=== PATIENT | female | born 1955 | race Caucasian/White ===

== ENCOUNTER 2020-06-12 11:01 | Emergency (ER) | payer OTHER, SELFPAY ==
--- NOTE | ~2020-06-12 | XR_ITS ---
EXAMINATION: XR chest 1V portable DATE: 06/12/2020 12:33 INDICATION: Cough and shortness of breath. TECHNIQUE: A single frontal view of the chest was obtained. COMPARISON: None. FINDINGS: The chest demonstrates clear lungs without pneumonia, pleural effusion, or pneumothorax. Th e heart size is normal. IMPRESSION: 1. No acute cardiopulmonary disease. Reviewed, dictated and finalized at location B. E ROOM WORKER
--- NOTE | ~2020-06-12 | CT_ITS ---
EXAMINATION: CTA chest PE protocol DATE: 06/12/2020 15:47 INDICATION: Shortness of breath. TECHNIQUE: Computed tomography angiography (CTA) of the chest was performed with 100 mL Omnipaque-350 intravenous contrast timed to evaluate the pulmonary arteries. Coronal maximum intensity projection 3D-reconstructions were created by the technologist. Automated exposure control and iterative reconst ruction technique were employed. The dose-length product was 353.59 mGy-cm. COMPARISON: Chest single view 06/12/2020 FINDINGS: There is mild atelectasis in lingula. No pleural effusion. The heart size is normal. No per icardial effusion. There is no pulmonary embolus. There is mild thoracic spondylosis. IMPRESSION: 1. No pulmonary embolus. Reviewed, dictated and finalized at location B. SANDER IMPRESSION: 1. No pulmonary embolus.
[2020-06-12 11:07] VITALS: BP 157/90; PULSE 93; RESP 20; TEMP 36.6; O2SAT 95
--- NOTE | 2020-06-12 11:46 | ECG_ITS ---
Measurements Intervals [place] Rate: 82 P: 62 AR: 143 QRS: -6 QRSD: 70 T: 44 QT: 346 QTc: 406 Interpretive Statements SINUS RHYTHM BASELINE ARTIFACT- II, III, AVF NORMAL ECG Electronically Signed On 06-12-2020 17:19:55 PROGRAM DEVELOPMENT SPECIALIST by Lyndon Collado D.O.
[2020-06-12 12:16] LABS: Basophils Absolute Auto 0.02 K/mm3 (0.00-0.10); Basophils Percent Auto 0.3 % (0.0-1.0); Eosinophils Absolute Auto 0.11 K/mm3 (0.02-0.50); Eosinophils Percent Auto 1.4 % (1.0-6.0); Hematocrit 38.9 % (35.0-49.0); Hemoglobin 12.4 g/dL (12.0-15.0); Immature Granulocyte Absolute 0.03 K/mm3 (0.00-0.00); Immature Granulocyte Percent A 0.4 % (0.0-0.0); Immature Reticulocyte Fraction 9.3 % (2.0-16.52); Lymphocytes Absolute Auto 2.16 K/mm3 (1.10-4.50); Lymphocytes Percent Auto 28.4 % (18.0-42.0); Mean Corpuscular HGB Conc 31.9 g/dL (32.0-36.0); Mean Corpuscular Hemoglobin 25.5 pg (27.0-31.0); Mean Platelet Volume 10.6 fl (9.2-11.8); Monocytes Absolute Auto 0.76 K/mm3 (0.10-0.90); Neutrophils Absolute Auto 4.5 K/mm3 (1.7-7.2); Neutrophils Percent Auto 59.5 % (50.0-70.0); Platelet Count Result 270 K/mm3 (150-420); Red Blood Count 4.86 M/mm3 (4.20-5.40); Red Cell Distribution Width 14.7 % (11.6-14.4); Reticulocyte Hemoglobin Conten 29.8 pg (28.0-35.0); Reticulocyte Percent 1.24 % (0.50-1.50); Reticulocytes Absolute 0.06 M/mm3 (0.02-0.1); White Blood Count 7.6 K/mm3 (4.8-10.8)
[2020-06-12 12:55] LABS: Alanine Aminotransferase 112 U/L (14-59); Albumin Level 3.6 g/dL (3.4-5.0); Alkaline Phosphatase 121 U/L (46-116); Anion Gap 10 mmol/L (8-16); Aspartate Amino Transferase 62 U/L (15-37); Bilirubin,Total 0.3 mg/dL (0.00-1.00); Blood Urea Nitrogen 18 mg/dL (7-18); Calcium 9.7 mg/dL (8.5-10.1); Carbon Dioxide 25 mmol/L (21-32); Chloride 103 mmol/L (98-108); Estimated CRCL calculation 52 ml/min; Estimated Glomerular Filt Rate 59; Ferritin 50 ng/mL (8-252); Glucose 94 mg/dL (70-99); Iron 50 ug/dL (50-170); Osmolality Calculated 287 mOsm/kg (285-295); Percent Iron Saturation 11 % (12-57); Potassium 4.5 mmol/L (3.5-5.1); Sodium 138 mmol/L (136-145); Total Protein 7.2 g/dL (6.4-8.2)
[2020-06-12 12:57] LABS: Troponin I < 0.02 ng/mL (0.00-0.056)
[2020-06-12 14:39] LABS: D Dimer 0.83 mg/L (0.19-0.50)
--- NOTE | 2020-06-12 15:28 | ED.SOB ---
HPI - SOB/Dyspnea General Chief Complaint: Shortness of Breath/Dyspnea Stated Complaint: SOB/Headache Time Seen by Provider: 06/12/20 11:15 Source: patient Mode of arrival: ambulatory Limitations: no limitations History of Present Illness HPI Narrative: Patient comes in because of what she feels is increased work of breathing over the past 2 weeks. She has had mild shortness of breath for that time. MD elicited complaint: shortness of breath Pertinent past history: diabetes Context: other (knee replacement on right) Timing: constant Severity: mild Exacerbating factors: nothing Relieving factors: nothing Known history of: diabetes Treatment prior to arrival: none Related Data Home Medications Medication Instructions Recorded Confirmed levothyroxine 75 mcg PO DAILY 06/12/20 06/12/20 metformin 1,000 mg PO BID 06/12/20 06/12/20 Allergies Allergy/AdvReac Type Severity Reaction Status Date / Time diazepam [From Valium] Allergy Unknown Verified 06/12/20 11:38 morphine Allergy Unknown Verified 06/12/20 11:38 Review of Systems Review of Systems: All systems reviewed & are unremarkable except as noted in HPI and below Respiratory: Respiratory: Reports as per HPI Comments: Mild SOB ongoing for last several weeks as above. Gastrointestinal: Comments: Leaky bowel syndrome. [facility] Past Medical History Medical History Chronic diarrhea Diabetes Hypothyroidism Iron deficiency anemia Vitamin D deficiency Surgical History Surgical History Total knee replacement status Family History Family History Mother Lymphoma Father CAD (coronary artery disease) Social History Social History (Updated 06/12/20 @ 15:53 by Tushar Urban MD) Social History: Smoking status: Never smoker Alcohol intake: never Exam Const: General: no acute distress HENMT: Head: normal to inspection Face and sinus: normal facial exam Eyes: Conjunctivae: conjunctivae normal EOM: EOMs intact bilaterally Neck: Neck: normal visual inspection Chest: Chest palpation & inspection: normal inspection of the chest Resp: Effort & Inspection: normal respiratory effort Auscultation: clear to auscultation bilaterally Cardio: Rate: regular rate Rhythm: regular rhythm GI: Auscultation: normal bowel sounds : External Female Exam: normal external appearance Skin: General skin exam: normal color Neuro: General: patient oriented x3 Speech: normal speech Extrem: General: normal to inspection Psych: Mental Status: mental status grossly normal Thought content: Yes Normal thought content present Course Course Emergency Course: Presented to Er with Complaint of shortness of breath for weeks, not made better or worse by home measures. EKG and labs were reviewed. D Dimer was elevated and C T chest was done. This was negative. Covid is pending. Vital Signs Vital signs: Vital Signs Temperature 36.6 C 06/12/20 11:07 Pulse Rate 93 06/12/20 11:07 Respiratory Rate 20 06/12/20 11:07 Blood Pressure 157/90 H 06/12/20 11:07 Pulse Oximetry 95 06/12/20 11:07 Temperature 36.6 C 06/12/20 11:07 Pulse Rate 93 06/12/20 11:07 Respiratory Rate 20 06/12/20 11:07 Blood Pressure 157/90 H 06/12/20 11:07 Pulse Oximetry 95 06/12/20 11:07 MDM - SOB/Dyspnea Lab Data Result diagrams: 06/12/20 11:46 06/12/20 11:46 Labs: Lab Results 06/12/20 06/12/20 06/12/20 Range/Units 11:46 11:46 11:46 WBC 7.6 (4.8-10.8) K/mm3 RBC 4.86 (4.20-5.40) M/mm3 Hgb 12.4 (12.0-15.0) g/dL Hct 38.9 (35.0-49.0) % MCV 80.0 (78.0-102.0) fL MCH 25.5 L (27.0-31.0) pg MCHC 31.9 L (32.0-36.0) g/dL RDW 14.7 H (11.6-14.4) % Plt Count 270 (150-420) K/mm3 MPV 10.6 (9.2-11.8) fl Immature Gran
[2020-06-12 16:45] VITALS: BP 121/75; PULSE 78; RESP 14; O2SAT 98
[2020-06-13 14:56] LABS: SARS-CoV-2 RNA PCR Negative
[2020-06-18 23:45] LABS: Transferrin 383 mg/dL (188-341)
== END 2020-06-12 16:44 | disposition home or self-care (01) ==
PROVIDERS: Emergency Provider Emergency Medicine; PCP Family Medicine
DX: D50.9 Iron deficiency anemia, unspecified (principal)
CPT/HCPCS: 36415; 71045; 71275; 80053; 82728; 83540; 83550; 84466; 84484; 85025; 85046; 85380; 87635; 93005; 99283; 99284; C9803; Q9965; U0003

== ENCOUNTER 2024-11-25 07:03 | Outpatient (CLI) | payer OTHER, SELFPAY ==
--- OUTSIDE RECORDS SUMMARY | 2024-11-25 07:08 | XMS_ITS | Encounter Summary ---
Author Organization [facility] Address [address] [place] [address] Care Team Providers Care Dance Director Name Role Phone Mike Brooks MD Unavailable [phone] Linda Schulte MD Unavailable Ho Mac MD Unavailable [phone] Tobi Davis MD Primary Care Provider [phone] Jessica Orr MD Unavailable Temo Rodriguez MD Unavailable [phone] Encounter Details Date Type Department Care Team (Late st Contact Info) Description 07/27/2023 Hospital Follow-up Call [facility] [address] [place] [address] Ruchi Omer, RN Social History Tobacco Use Types Packs/Day Years Used Date Smoking Tobacco: Never Smokeless Tobacco: Never Alcohol Use Standard Drinks/Week Comments Yes 0 (1 standard drink = 0.6 oz pur e alcohol) occasional glass of wine [facility] Utilities Answer Date Recorded In the past 12 months has e [employer], gas, oil, or water [employer] threatened to shut off services in your home? No 07/25/2023 Humiliation, Afraid, Rape, and Kick questionnair e Answer Date Recorded Within the last year, have y ou been afraid of your partner or ex-partner? No 07/25/2023 Within the last year, have y ou been humiliated or emotionally abused in other ways by your partner or ex-partner? No Within the last year, have y ou been kicked, hit, slapped, or otherwise physically hurt by your partner or ex-partner? No 07/25/2023 Within the last year, have y ou been raped or forced to have any kind of sexual activity by your partner or ex-partner? No 07/25/2023 Overall Financial Resource Strain (CARDIA) Answe r Date Recorded How hard is it for you to pa y for the very basics like food, housing, medical care, and heating? Not hard at all 07/25/2023 Hunger Vital Sign Answer Date Recorded Within the past 12 months, y ou worried that your food would run out before you got the money to buy more. Never true 07/25/20 23 Within the past 12 months, t he food you bought just didn't last and you didn't have money to get more. Never true 07/25/2023 PRAPARE - Transportation Answer Date Re corded In the past 12 months, has l ack of transportation kept you from medical appointments or from getting medications? No 07/03 In the past 12 months, has l ack of transportation kept you from meetings, work, or from getting things needed for daily living? No 07/25/2023 Housing Stability Vital Sign Answer Mehrdad e Recorded In the last 12 months, was t here a time when you were not able to pay the mortgage or rent on time? No 07/25/2023 In the last 12 months, how many places have you lived? 1 07/25/2023 In the last 12 months, was t here a time when you did not have a steady place to sleep or slept in a nursing home (including now)? 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 Not on file Not on file Not on file documented as of this encounter Functional Status * Are you deaf or do you have serious difficulty hearing Answer Date of Assessment Author Status No 07/25/2023 12:07 AM Alexis Rios RN Active * Are you blind or do you have serious difficulty seeing, even when wearing glasses? Answer Date of Assessment Author Status No 07/25/2023 12:07 AM Alexis Rios RN Active * Do you have serious difficulty walking or climbing stairs? Answer Date of Assessment Author Status Yes 07/25/2023 12:07 AM Alexis Rios RN Active * Do you have difficulty dressing or bathing? Answer Date of Assessment Author Status No 07/25/2023 12:07 AM Alexis Rios RN Active * Because of a physical, mental, or emotional condition, do you have difficulty doing errands alone such as visiting a doctor's office or shopping? Answer Date of Assessment Author Status No 07/25/2023 12:07 AM Alexis Rios RN Active documented as of this encounter Mental Status * Because of a physical, mental, or emotional condition, do you have serious difficulty concentrating, remembering, or making decisions? Answer Entry Date Author Status No 07/25/2023 12:07 AM Alexis Rios RN Active documented in this encounter Plan of Treatment Not on file documented as of this encounter Visit Diagnoses Not on filedocumented in this encounter Care Teams Dance Director Relationship Specialty Start Date End Date Tobi Davis MD [address] [place] [phone] PCP - General FAMILY PRACTICE 10/17/18 Mike Brooks MD CARDIOVASCULAR DISEASE 10/12/16 Linda Schulte MD [address] [place] [phone] EP Chain Saw Operator CLINICAL CARDIAC ELECTROPHYSIOLOGY 03/29/17 Ho Mac MD [address] [place] [phone] [place] [employer] CARDIOVASCULAR DISEASE 11/05/17 Jessica Orr MD [address] [place] [address] [id number] Surgeon NEUROLOGICAL SURGERY 04/07/19 Temo Rodriguez MD [address] [place] [phone] ORTHOPAEDIC SURGERY 05/30/24 documented as of this encounter
--- OUTSIDE RECORDS SUMMARY | 2024-11-25 07:08 | XMS_ITS | Clinical Summary ---
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 Date Activated Date Inactivated Comments 07/25/2023 12:08 AM 07/25/2023 3:16 PM Care Teams Fermenting Cellars Receiver Relationship Specialty Start Date End Date Tobi Pollack MD [address] [place] [phone] PCP - General FAMILY PRACTICE 10/17/18 Mike Brooks MD CARDIOVASCULAR DISEASE 10/12/16 Linda Schulte MD [address] [place] [phone] Stationary Engineer Apprentice CLINICAL CARDIAC ELECTROPHYSIOLOGY 03/29/17 Ho Mac MD [address] [place] [phone] [place] Stationary Engineer Apprentice CARDIOVASCULAR DISEASE 11/05/17 Jessica Orr MD [address] [address] Surgeon NEUROLOGICAL SURGERY 04/07/19 Temo Rodriguez MD [address] [phone] ORTHOPAEDIC SURGERY 05/30/24
--- OUTSIDE RECORDS SUMMARY | 2024-11-25 07:08 | XMS_ITS | Encounter Summary ---
Author Organization [facility] Address [facility] [place] [address] Care Team Providers Care Seo Expert Name Role Phone Mike Brooks MD Unavailable [phone] Linda Schulte MD Unavailable Ho Mac MD Unavailable [phone] Tobi Davis MD Primary Care Provider Jessica Orr MD Unavailable Temo Rodriguez MD Unavailable [phone] Encounter Details Date Type Department Care Team (Late st Contact Info) Description 01/07/2019 Abstract [facility]VERSION [address] [place] [address] , Generic Conversion, Social History Tobacco Use Types Packs/Day Years Used Date Smoking Tobacco: Never Smokeless Tobacco: Never Alcohol Use Standard Drinks/Week Comments Yes 0 (1 standard drink = 0.6 oz pur e alcohol) occasional glass of wine Comments Unknown Sex and Gender Information Value Date Recorded Sex Assigned at Female 08/17/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 Not on file Not on file documented as of this encounter Plan of Treatment Not on file documented as of this encounter Visit Diagnoses Not on filedocumented in this encounter Additional Health Concerns Infection Onset Date Last Indicated Resolved Time COVID-19 Rule Out 12/11/2019 12/11/2019 12/12/2019 6:09 PM CDT COVID-19 Rule Out 04/27/2021 04/27/2021 04/27/2021 7:47 PM CDT documented as of this encounter Care Teams Seo Expert Relationship Specialty Start Date End Date Tobi Davis MD [address] [place] [phone] PCP - General FAMILY PRACTICE 10/17/18 Mike Brooks MD CARDIOVASCULAR DISEASE 10/12/16 Linda Schulte MD [address] [place] [phone] Software Designer CLINICAL CARDIAC ELECTROPHYSIOLOGY 03/29/17 Ho Mac MD [address] [place] [phone] [place] Software Designer CARDIOVASCULAR DISEASE 11/05/17 Jessica Orr MD [address] [phone] Surgeon NEUROLOGICAL SURGERY 04/07/19 Temo Rodriguez MD [address] [phone] ORTHOPAEDIC SURGERY 05/30/24 documented as of this encounter
--- OUTSIDE RECORDS SUMMARY | 2024-11-25 07:08 | XMS_ITS | Encounter Summary ---
Author Organization [facility] Address [address] [place] [address] Care Team Providers Care Pillowcase Cleaner Name Role Phone Alton Marie MD Primary Care Provider [phone] Yosvany Bahena MD Unavailable [phone] Mike Brooks MD Unavailable [phone] Linda Schulte MD Unavailable Mai Bauer [facility] Unavailable [phone] Juan Cadena MD Unavailable Ho Mac MD Unavailable [phone] Tobi Davis MD Primary Care Provider Jessica Orr MD Unavailable Temo Rodriguez MD Unavailable [phone] Encounter Details Date Type Department Care Team (Late st Contact Info) Description 10/21/2015 Abstract [facility] [address] [place] [phone] Mike Brooks MD [address] [facility], [address] [place] [address] Social History Tobacco Use Types Packs/Day Years Used Date Smoking Tobacco: Never Alcohol Use Standard Drinks/Week Comments No 0 (1 standard drink = 0.6 oz pur e alcohol) Comments Unknown Sex and Gender Information Value Date Recorded Sex Assigned at Female 08/17/2024 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 Not on [...] documented as of this encounter Care Teams Pillowcase Cleaner Relationship Specialty Start Date End Date Alton Marie MD [address] [place] [phone] PCP - General FAMILY PRACTICE 07/13/16 10/16/18 Tobi Davis MD [address] [place] [phone] PCP - General FAMILY PRACTICE 10/17/18 Yosvany Bahena MD [address] [place] [phone] CARDIOVASCULAR DISEASE 07/13/16 7 Mike Brooks MD [address] [place] [phone] CARDIOVASCULAR DISEASE 10/12/16 Linda Schulte MD [address] [place] [phone] EP Drainman CLINICAL CARDIAC ELECTROPHYSIOLOGY 03/29/17 Mai Bauer FNP-BC [address] [place] [phone] CARDIOVASCULAR DISEASE 10/21/17 8 Juan Cadena MD [address] [place] [phone] CARDIOVASCULAR DISEASE 10/21/17 8 Ho Mac MD [address] [place] [phone] Ashuelot Drainman CARDIOVASCULAR DISEASE 11/05/17 Jessica Orr MD [address] [phone] Surgeon NEUROLOGICAL SURGERY 04/07/19 Temo Rodriguez MD [address] [phone] ORTHOPAEDIC SURGERY 05/30/24 documented as of this encounter
--- OUTSIDE RECORDS SUMMARY | 2024-11-25 07:08 | XMS_ITS | Clinical Summary ---
Author Organization [facility] Address [address] [place] [address] Care Team Providers Care It Consulting Manager Name Role Phone Branedn Kearney MD Primary Care Provider + Source Comments [facility],non-owned Affiliates and Associated Physician Practices is amultiple site organization consisting of ambulatory clinics and hospital sitesin [place], [place] and [place]. This disclosure is being madepursuant to the Care Everywhere program and may not contain all information available regarding this patient. Last updated 18.[facility] Allergies Active Allergy Reactions Criticality Noted Date Comments Cephalexin Skin Reactions Medium 09/07/2012 Diazepam Other High 09/07/2012 Unable to wake me up Morphine Anaphylaxis,Other High 09/07/2012 Unable to wake me up, Unable to wake me up Active Problems Problem Noted Date Diagnosed Date Syncope and collapse 09/28/2012 Social History Tobacco Use Types Packs/Day Years Used Date Smoking Tobacco: Never Smokeless Tobacco: Never Alcohol Use Standard Drinks/Week Comments Not Asked 0 (1 standard drink = 0.6 oz pur e alcohol) Comments Unknown Sex and Gender Information Value Date Recorded Sex Assigned at Not on file Legal Sex Female 6:48 PM SENIOR NET C DEVELOPER Gender Identity Not on file Sexual Orientation Not on file Plan of Treatment Health Maintenance Due Date Last Done Comments BONE DENSITY TESTING 1955 COLOGUARD (AGES 45-75) - COL ON CA SCREENING 1955 COLON MONITORING 1955 COLONOSCOPY - COLON CA SCREENING 1955 CT COLONOGRAPHY - COLON CA SCREENING 1955 Colorectal Cancer Screening 1955 FIT - COLON CA SCREENING 1955 FLEX SIG - COLON CA SCREENING 1955 LIPID TESTING 1955 MAMMOGRAM 1955 HEPATITIS C SCREENING 06/16/1973 DTAP/TDAP/TD VACCINES (1 - Tdap) 1974 PNEUMOCOCCAL VACCINE 50+ (1 of 1 - PCV) 2005 ZOSTER VACCINE (1 of 2) 2005 COVID-19 VACCINE ( - 2023-2 5 season) 2024 DEPRESSION SCREENING 08/02/2024 INFLUENZA VACCINE (Season Ended) 2025 Respiratory Syncytial Virus (RSV) Vaccine Pt: or over 60 yrs (1 - 1-dose 75+ series) 2030 HEPATITIS B VACCINE Aged Out No longe r eligible based on patient's age to complete this topic HIB VACCINE Aged Out No longer eligi ble based on patient's age to complete this topic HPV VACCINE Aged Out No longer eligi ble based on patient's age to complete this topic MENINGOCOCCAL (Group B) VACC INE SHARED DECISION-MAKING Aged Out No longer eligibl e based on patient's age to complete this topic MENINGOCOCCAL GROUPS A/C/Y/W VACCINE Aged Out No longer eligible b ased on patient's age to complete this topic Care Teams It Consulting Manager Relationship Specialty Start Date End Date Branden Kearney MD [address] [facility] [place] [phone] PCP - General 08/19/12
--- OUTSIDE RECORDS SUMMARY | 2024-11-25 07:08 | XMS_ITS | Data Portability ---
Author Organization [facility], [address] [facility] ([place]) Address [address] 4th [place] [address] Care Team Providers Care Care Management Associate Name Role Phone NELIDA BUNCH Primary Care Provider [phone] NELIDA POLALCK Primary Care Provider Assessment Encounter Date Assessment Date Assessment LastModified by Organization Details LastModified Time 06/01/2024 06/01/2024 CHIEF COMPLAINT: Preoperative visit prior to planned upcoming left total knee replacement on June 13, 2024. INTERVAL HISTORY: The patient presents today for a preoperative visit with me prior to her planned upcoming left total knee replacement. She states there have been no improvement in her symptoms since she last saw me, rating her pain as an 8/10. She is limping anytime she walks. She is using a hinged brace for stability because she has a lot of apprehension on uneven ground or when using stairs. She is having a lot of pain and difficulty sleeping at night. She denies any recent illness or constitutional complaints and is looking forward to proceeding with surgery as scheduled. The patient did see Dr. Fatima with cardiology and has been cleared from a cardiac standpoint. She also saw her primary care physician Dr. Pollack back on May 08 and was cleared from a medical standpoint. Those supporting documents have all been sent to us per her report, and we will certainly make sure that we have received them so that we can review them. It sounds like she has been given clearance to proceed by both physicians. Once again, the patient denies any recent illness and has no other acute complaints or concerns today. REVIEW OF SYSTEMS: CONST: No fevers or chills. No acute distress. EYES: No vision changes. ENT: No difficulty in swallowing. RESP: No shortness of breath. CV: No heart racing. GI: No nausea, vomiting, diarrhea, dark tarry stools, or blood from rectum. : No urinary symptoms. MSK: Please refer to the HPI. SKIN: No rashes or other skin lesions. PSYCH: No new changes in mood or affect. NEURO: No new weakness or changes in sensory function. Reviewed past medical history, surgical history, family history, social history. No changes except as noted. PHYSICAL EXAMINATION: CONST: Alert and oriented. HEAD: Normocephalic, atraumatic. EYES: No icterus. ENT: Oral mucosa pink and moist. RESP: Breathing appears normal. No use of accessory muscles. SKIN: No jaundice. PSYCH: Appropriate mood and affect. NEURO: No speech difficulty. MSK: The patient was observed ambulating today using no assistive device with a hinged brace to left knee and significant antalgia. The brace was removed for examination and focused examination of the left knee is notable for range of motion from full extension to 120 degrees of flexion. Overall alignment is mild to moderate varus with mild effusion. Ligamentous exam is grossly stable to varus or valgus stress throughout the arc of motion as well as anterior and posterior drawer at 90 degrees of flexion. She does have sharp medial joint line tenderness as well as mild lateral joint line tenderness. She has significant discomfort with patellar grind and palpable crepitus through flexion. No pain with passive range of motion of the left hip. She is warm and well-perfused, and neurovascularly intact distally. Reviewed pertinent diagnostic tests, lab work, and imaging. These were reviewed with the patient. IMAGING: Tri-panel view of the left lower extremity was obtained and reviewed independently today, demonstrating severe varus pattern osteoarthritis of the knee with moderate varus alignment. Please refer to the formal radiology report for more detail. PLAN: We reviewed the above clinical and imaging findings today and discussed our plan to proceed with left total knee replacement as scheduled next month. As noted above, the patient has received appropriate medical and cardiac clearance to proceed with surgery. We did review risks and benefits of knee replacement today as well as expected outcome and recovery. The patient was counseled that the risks of surgery include but are not limited to medical or anesthetic risks in addition to surgical risks of bleeding, infection, neurovascular injury, venous thromboembolism, fracture, implant loosening or failure, continued pain, persistent limb stiffness, arthrofibrosis, instability, and potential need for revision surgery. She voiced understanding with all of this. I look forward to seeing her back on the date of surgery. She knows how to reach me if she needs me before then for any reason. [email or web address] Not available 06/01/2024 12:09:49 06/15/2024 06/15/2024 CHIEF COMPLAINT: Follow up left knee replacement performed two days ago on June 13, 2024, at [facility]. I NTERVAL HISTORY: The patient presents today for a shortened interval follow up of her left knee replacement that was performed just a couple of days ago. She was admitted overnight for observation and physical therapy because she failed physical therapy on the date of surgery due to lack of quadriceps function and buckling of the knee. She then had repeat physical therapy assessment two separate times on postop day 1 and demonstrated continued buckling of the knee at those sessions, so she was discharged from the hospital with a knee immobilizer in place and instructed to use a knee immobilizer at all times while ambulating, and that it could be removed for rest. Today, the patient states that she is doing okay overall. She is having expected pain which is being controlled with Sullivan. She denies nausea, vomiting, dizziness, lightheadedness, headache, or chest pain. She is not sure if her quadriceps function has returned yet. She will start outpatient physical therapy tomorrow but has faithfully used her knee immobilizer and her walker any time that she has been up to ambulate since she was discharged from the hospital. She has no other acute complaints or concerns today. REVIEW OF SYSTEMS: CONST: No fevers or chills. No acute distress. EYES: No vision changes. ENT: No difficulty in swallowing. RESP: No shortness of breath. CV: No heart racing. GI: No nausea, vomiting, diarrhea, dark tarry stools, or blood from rectum. : No urinary symptoms. MSK: Please refer to the HPI. SKIN: No rashes or other skin lesions. PSYCH: No new changes in mood or affect. NEURO: No new weakness or changes in sensory function. Reviewed past medical history, surgical history, family history, social history. No changes except as noted. PHYSICAL EXAMINATION: CONST: Alert and oriented. HEAD: Normocephalic, atraumatic. EYES: No icterus. ENT: Oral mucosa pink and moist. RESP: Breathing appears normal. No use of accessory muscles. SKIN: No jaundice. PSYCH: Appropriate mood and affect. NEURO: No speech difficulty. MSK: The patient presented today in a wheelchair. I did not observe her ambulating. She did have a knee immobilizer in place. I reviewed the knee immobilizer for examination. She has an intact Mepilex bandage over her anterior knee incision with no staining or saturation. She has expected edema, ecchymosis and tenderness around the operative site at the left knee. Passively, her knee ranges from full extension to 90 degrees of flexion with some discomfort as expected at terminal flexion. Notably, the patient does have intact but weak quadriceps function today. She is unable to perform an active straight leg raise but she can fire her quadriceps, and she can actively extend her knee without resistance. Her quadriceps strength would be assessed at 3+/5 today. She does have intact sensation throughout the left lower extremity and is otherwise neurovascularly intact. Reviewed pertinent diagnostic tests, lab work, and imaging. These were reviewed with the patient. IMAGING: Plain films of the left knee that were obtained postoperatively on the date of surgery demonstrate a cemented total knee arthroplasty without patellar surfacing with components in good orientation and alignment and no obvious complicating features. Please refer to the formal radiology at [facility] for more detail. PLAN: We reviewed the above clinical and imaging findings today and discussed next steps in management of the patient s left knee. She has weak quadriceps function which is likely somewhat pain inhibited. She will be starting formal physical therapy tomorrow. I advised her to remain in her knee immobilizer at all times while ambulating until she is assessed by her physical therapist on an outpatient basis tomorrow. Once she has return of reliable and good quadriceps function, she can wean out of the knee immobilizer and should continue to use a walker at all times for balance and support to prevent fall and injury. Patient was in agreement. I plan to see her at two weeks for repeat follow up and staple removal, and incision check. She does know how to reach me if she needs me before that next visit. [email or web address] Not available 06/16/2024 12:59:36 08/03/2024 08/03/2024 CHIEF COMPLAINT: Six-week follow-up status post left total knee replacement on June 13, 2024. INTERVAL HISTORY: The patient presents today for follow-up of her left knee replacement that was performed about six weeks ago. She is doing really well. She is ambulating without any assistive device within the home and bringing a cane with her if she goes outside longer distances. She is only taking occasional Sullivan after physical therapy or at night to help her sleep and is otherwise controlling her pain with Tylenol. She is happy with how her incision is healing and denies any local or systemic signs or symptoms of infection, like problems at the incision site as well as fevers, chills, or night sweats. She feels she is making a good recovery thus far and has no acute complaints or concerns today. REVIEW OF SYSTEMS: CONST: No fevers or chills. No acute distress. EYES: No vision changes. ENT: No difficulty in swallowing. RESP: No shortness of breath. CV: No heart racing. GI: No nausea, vomiting, diarrhea, dark tarry stools, or blood from rectum. : No urinary symptoms. MSK: Please refer to the HPI. SKIN: No rashes or other skin lesions. PSYCH: No new changes in mood or affect. NEURO: No new weakness or changes in sensory function. Reviewed past medical history, surgical history, family history, social history. No changes except as noted. PHYSICAL EXAMINATION: CONST: Alert and oriented. HEAD: Normocephalic, atraumatic. EYES: No icterus. ENT: Oral mucosa pink and moist. RESP: Breathing appears normal. No use of accessory muscles. SKIN: No jaundice. PSYCH: Appropriate mood and affect. NEURO: No speech difficulty. MSK: The patient was observed ambulating today using no assistive device with minimal antalgia. Focused examination of the left knee is notable for a nicely healing incision over the anterior aspect of the knee with no local signs of infection. There is really minimal effusion and edema, especially considering the early postoperative phase. The knee ranges from full extension to 120 degrees of flexion comfortably. Ligamentous exam is stable in the coronal and sagittal planes throughout the arc of motion. Thigh and calf are soft. Negative home sign. Patella is tracking in the midline. She is warm and well perfused and neurovascularly intact distally. Reviewed pertinent diagnostic tests, lab work, and imaging. These were reviewed with the patient. IMAGING: Plain films of the left knee were obtained and reviewed independently today demonstrating a cemented total knee arthroplasty in good orientation and alignment with no obvious complicating features. Please refer to the formal radiology report for more detail. PLAN: We reviewed the above clinical and imaging findings today and discussed continued management status post left knee replacement that was performed about six weeks ago. The patient has made a good recovery from surgery thus far. She can continue with activity as tolerated on her knee. I do recommend antibiotic prophylaxis for dental work and invasive procedures going forward. I should see her again in about six weeks for repeat follow-up. She knows how to reach me if she needs me sooner for any reason. [facility] [email or web address] Not available 08/03/2024 13:48:00 10/26/2024 10/26/2024 INTERVAL HISTORY : Ruby Benavidez is a 69-year-old female here today for follow-up evaluation of her left knee. Patient is approximately 3 months status post left total knee arthroplasty performed by Dr. Rodriguez on 06-13-2024. Patient states that she is overall doing well today. She states that she is 40% improved since her last visit. Her current pain level is a 2/10. Symptoms are localized diffusely of the anterior aspect of the left knee. She denies any radiation of symptoms in the left lower extremity. She denies any weakness or numbness in left lower extremity. She presents today without the use of any assist devices. She has returned to work at full duty and doing some moderate exercise and feels that this is quite beneficial for her. She does tolerate increased activity level without any pain or discomfort. She is overall very pleased and satisfied with her outcomes and progression of her left knee at this time. She denies any chest pain, fever, chills, dyspnea, calf pain or calf swelling. REVIEW OF SYSTEMS: CONST: No fevers or chills. No acute distress. EYES: No vision changes. ENT: No difficulty in swallowing. RESP: No shortness of breath. CV: No heart racing. GI: No nausea, vomiting, diarrhea, dark tarry stools, or blood from rectum. : No urinary symptoms. MSK: Please refer to the HPI. SKIN: No rashes or other skin lesions. PSYCH: No new changes in mood or affect. NEURO: No new weakness or changes in sensory function. Reviewed past medical history, surgical history, family history, social history. No changes except as noted. PHYSICAL EXAMINATION: CONST: Alert and oriented. HEAD: Normocephalic, atraumatic. EYES: No icterus. ENT: Oral mucosa pink and moist. RESP: Breathing appears normal. No use of accessory muscles. SKIN: No jaundice. PSYCH: Appropriate mood and affect. NEURO: No speech difficulty. MSK: Patient ambulates with overall normal gait without the use of any assist devices. Inspection of the left knee reveals overall neutral alignment with well-healed anterior surgical incision site with scar formation. There is no obvious erythema, lesions, sores, palpable warmth or signs of infection. The surrounding skin is clean, dry and intact. Gentle range of motion of the knee is from full extension to 110 degrees of flexion. There is satisfactory patellar tracking throughout the range of motion. Intact quadricep tendon and patellar tendon. There is no tenderness palpation of the quadricep, hamstring or calf. The thigh and calf are soft and compressible. The knee is stable to varus and valgus stressing both in flexion and extension. 5/5 strength with flexion and extension of the knee. Stable anterior and posterior drawer. Negative Homans' sign. Palpable dorsalis pedis and posterior tibial pulse. Intact dull sensation of left lower extremity. IMAGING: X-ray imaging of the left knee performed today 10-26-[address] [facility] was independently reviewed with the patient today in the office. X-ray imaging included AP, lateral and sunrise view. X-ray imaging of the left knee demonstrated overall neutral alignment with well-positioned and appropriately sized cemented left total knee arthroplasty without any evidence of hardware failure or loosening. There is satisfactory cement mantle of all components. Lateral view demonstrates no evidence of loose bodies within the joint line. [place] view demonstrates nonresurfaced patella without evidence of subluxation or dislocation. There is no evidence of periprosthetic fractures. Please refer to formal report for more information. PLAN: The plan was discussed in great depth with the patient today in the office. I have congratulated patient on their post-operative progression and overall satisfaction status post left total knee arthroplasty performed by Dr. Rodriguez. I have personally reviewed patient x-ray imaging with them today in the office and informed them they have overall neutral alignment with well-positioned and appropriately sized left total knee arthroplasty without any evidence of loosening or complications. I have recommended patient continue to maintain an active and healthy lifestyle. We discussed low impact exercise activities such as walking, stationary biking, elliptical and swimming. We reviewed the use of prophylactic antibiotics prior to dental prodecures and dental cleanings. Patient was informed that Dr. Rodriguez recommends this protocol for life, and that we will provide these for them in the future when needed. I did inform patient that it takes up to 1 year to fully heal and recover from a total joint replacement, and she certainly has plenty of time to see some continued improvement in her overall functionality and symptom relief. I have recommended that she continue to perform her physical therapy exercises at home least once a day for maximum benefit. Patient has verbally agreed to the plan. All questions and concerns were addressed. Patient will follow-up with myself or Dr. Rodriguez in approximately 3 months for her 6-month status post left total knee arthroplasty evaluation. [email or web address] Not available 10/26/2024 13:20:14 Plan of Treatment Reminders Order Date Submit Date Provider Last Modified By Organization Details Last Modified Time Details Appointments Myriam [place] nt 15.ES T 2024 10:45A M Dr. Temo Rodriguez Not available Not available Not available MAY 10.ES T 2024 10:20A M Ophthalmology Not available Not available Not available Catar act Evalu ation 10.NE W 2024 10:30A M Dr. Tuan Avalos Not available Not available Not available Lab None recor ded. Referral None recor ded. Procedures None recor ded. Surgeries None recor ded. Imaging None recor ded. Medication Orders None recor ded. Patient TargetsNo targets recorded. Patient InstructionsNo instructions recorded. Reason for Referral None Reported. Results Created Date Observation Date Name Description Value Unit Range Abnormal Flag Note LastModifiedBy Organization Detail LastModifiedTime 06/13/20 24 06/13/2024 TYPE AND SCREE N ABO/Rh(D) O POSITI VE Not Available [facility] - Lawanda Martinez [facility] [address] [place], [address], 06/13/2024 13:07:35 06/13/20 24 06/13/2024 TYPE AND SCREE N antibody screen NEGATI VE Not Available [facility] - Lawanda blnaca Juan [facility] [address] [place], [address], 06/13/2024 13:07:35 06/13/20 24 06/13/2024 TYPE AND SCREE N xm expiration 2023,2 359 Not Available [place] [facility] - S rianna Martinez S Lab [address] [place], [address], 06/13/2024 13:07:35 06/13/20 24 06/13/2024 POC GLUCO SE POC glucose 119 70-109 high Not Available [facility] [address] [place], [address], 06/13/2024 15:02:33 06/13/20 24 06/13/2024 TYPE AND SCREE N ABO/Rh(D) Pendin g Not Available [facility] - [facility] rianna Martinez S Lab [address] [place], [address], 06/13/2024 12:21:50 06/13/20 24 06/13/2024 TYPE AND SCREE N antibody screen Pendin g Not Available [facility] - S t Juan S Lab [address] [place], [address], 06/13/2024 12:21:50 06/13/20 24 06/13/2024 TYPE AND SCREE N xm expiration 2023,2 359 Not Available [facility] rianna Martinez S Lab [address] [place], [address], 06/13/2024 12:21:50 06/13/20 24 06/13/2024 POC GLUCO SE POC glucose 111 70-109 high Not Available [facility] Lab [address] [place], [address], 06/13/2024 10:46:48 06/13/20 24 06/13/2024 TYPE AND SCREE N ABO/Rh(D) Pendin g Not Available [facility] - [facility] t Juan S Lab [address] [place], [address], 06/13/2024 10:47:34 06/13/20 24 06/13/2024 TYPE AND SCREE N antibody screen [place]in [place] Not Available [facility] Juan Lab [address] [place], [address], 06/13/2024 10:47:34 06/13/20 24 06/13/2024 TYPE AND SCREE N xm expiration 2023,2 359 Not Available [place] [facility] - [facility] S Lab [address] [place], [address], 06/13/2024 10:47:34 05/03/20 24 05/03/2024 XR, knee, 4 or more view [address] [address] Teleph one [phone] Name: Nahum Benavidez 1822Ex am Date: 2023 Age: 68Phys ician: Temo Rodriguez : 1954Ex aminat ion: XR KNEE 4 VIEWS LEFT Right knee DATE: 024 HISTOR Y: Chroni c left knee pain for 5 years Compar isons: 015 FINDIN GS: 4 images were submit antoinette. There is severe joint space narrow ing in the medial compar tment and mild joint space narrow ing in the patell ofemor al compar tment. There are osteop hytes in all 3 compar tments . There is no acute fractu re. There are no osseou s destru ctive lesion s. IMPRES JACKLYN: Tricom partme ntal osteoa rthrit ic change . There are no acute osseou s findin gs. Electr onical ly signed in Jay cribe by: ANKIT MEDELLIN RES, MD on:05/03/2024 3:23 PM cc: Page PAGE 1 of [facility] ES 1 [email or web address] [facility] [address] [place] [address], [address], 05/08/2024 22:52:21 05/05/20 24 01/16/2014 XR, knee, 4 or more view No observ ation record ed. [email or web address] [facility] Only - [facility] [address] [place], [address], 05/05/2024 17:52:38 05/29/20 24 12/08/2023 imagi ng/di agnos tic resul t No observ ation record ed. [email or web address] Not Available 18:20:55 06/01/20 24 06/01/2024 XR, bone lengt h [facility] 1st [address] [address] Teleph one [phone] Name: Nahum Benavidez 1822Ex am Date: 2023 Age: 68Phys ician: Temo Rodriguez : 1954Ex aminat ion: XR TRIPAN EL LEFT EXAM: XR TRIPAN EL LEFT HISTOR Y: Upcomi ng left knee replac ement. Having pain in left knee for a couple months FINDIN GS: Standi ng fronta l view of the left lower extrem ity submit antoinette. There is modera te to severe medial compar tment osteoa rthrit is. No acute fractu re. IMPRES JACKLYN: Modera te to severe medial compar tment osteoa rthrit is Electr onical ly signed in Jay cribe by: NAHUM Webber on: 9:17 AM cc: Page PAGE [address] [facility] ES 1 [email or web address] [facility] Only - [facility] [address] [place], [address], 06/13/2024 08:31:21 08/03/19 25 08/03/2024 XR, knee, 3 view [facility] [address] [address] [address] Teleph one [phone] Name: Nahum Benavidez 1822Ex am Date: 2024 Age: 69Phys ician: Temo Rodriguez : 1954Ex aminat ion: XR KNEE 3 VIEWS LEFT EXAM: Left Knee, 3 views HISTOR Y: Follow up 6 weeks post-o p left knee replac ement . No curren t compla ints.. COMPAR DEVON: 024 FINDIN GS: The patien t is status post total knee arthro plasty . The hardwa re is intact . The osseou s alignm ent is unchan ged. There is no fractu re or disloc ation. There is no effusi on. IMPRES JACKLYN: Status post total knee arthro plasty withou t compli cation Electr onical ly signed in Jay cribe by: NAFISA Millan MD on:08/03 9:58 AM cc: Page PAGE 1 of [facility] 1 [email or web address] [facility] - [facility] [address], [address], 08/03/2024 14:07:30 10/27/19 25 10/26/2024 XR, knee, 3 view [place] [address] Teleph [facility] Name: Nahum Benavidez 1822Ex am Date: 2024 Age: 69Phys ician: Temo Rodriguez : 1954Ex aminat ion: XR KNEE 3 VIEWS LEFT EXAMIN ATION: XR KNEE 3 VIEWS LEFT HISTOR Y: Left knee follow up from surger y 3 months ago. Compla ins of pain since surger y. COMPAR DEVON: Left knee 08/03/19 25 TECHNI QUE: Left knee 3 views FINDIN GS: The bone minera lizati on is normal . There is a left total knee arthro plasty withou t peripr osthet ic fractu re or eviden ce of loosen ing. There is a trace knee joint effusi on. The patell ann marie is well situat ed within the trochl ear groove on the sunris e view. IMPRES JACKLYN: 1. Left total knee arthro plasty withou t peripr osthet ic fractu re or eviden ce of loosen ing. 2. Trace knee joint effusi on. Electr onical ly signed in Jay tatiana by: SNEHA ROMAN MD on:10/01 12:15 PM cc: Page PAGE 1 of [facility] 1 [email or web address] [facility] Only - [facility] [address] [facility], [place], [address], 10/31/2024 08:24:25 Result Notes None recorded. Problems Name Problem SNOMED Code Status Onset Date Resolution Date Notes Provider Name and Address Organization Details Recorded Time Pain of left knee joint 692879595457 107 Active 2023 Caridad Maldonado [facility] 4 14:36:53 Osteoarth ritis of left knee joint 969174084125 109 Active 2023 Yani Coffman [facility] 4 20:40:21 Acquired varus deformity of left knee 280829652402 100 Active 2023 PAYAL [facility] [address] [place] [address], [phone], [facility] 4 16:19:28 History of operative procedure on knee 840372393 Active 2023 Caridad Maldonado [facility] 4 16:49:57 Obstructi ve sleep apnea of adult 156365272806 3 [facility]23 [facility] 4 10:51:29 Rosacea 177782404 Active 2023 Mary Lou Chante [facility] 4 10:51:36 Multiple benign melanocyt ic nevi 660941994 Active 2023 Right & left upper extremity Mary Lou Chante [facility] 4 10:52:06 Seborrhei c keratosis 210317855 Active 2023 Mary Lou Chante [facility] 4 10:52:15 Solar lentigo 84070652 Active 2023 [facility] 4 10:52:19 Rosacea, papular type 45669186 Active 2023 Dorcas conner, [facility] 4 09:18:14 Lentigo - freckle 627898902 Active 2023 Dorcas conner, [facility] 4 09:18:30 Problem Notes None recorded. Procedures Surgical History Date Name Laterality Status Provider Name and Address Organization Details Recorded Time Colonoscopy with biopsy completed Not Available Health Note 05/25/2024 11:01:02 Total hysterectomy completed Not Available Health Note 05/25/2024 11:01:02 Removal of tonsils completed Not Available Health Note 05/25/2024 11:01:02 Total knee arthroplasty completed Not Available Health Note 05/25/2024 11:01:02 Imaging Results Imaging Date Name Status LastModified by Organiz ation Details LastModified Time 05/03/2024 XR, knee, 4 or more view completed [email or web address] [facility] [address] [place] [address], [id number], 05/08/2024 22:52:21 01/16/2014 XR, knee, 4 or more view completed [email or web address] [facility] [address] [place] [address], [id number], 05/05/2024 17:52:38 12/08/2023 imaging/diag nostic result completed [email or web address] Information not available 05/29/2024 18:20:55 06/01/2024 XR, bone length completed [email or web address] [facility] [address] [place] [address], [id number], 06/13/2024 08:31:21 08/03/2024 XR, knee, 3 view completed [facility] [address] [place] [address], [address], 08/03/2024 14:07:30 10/26/2024 XR, knee, 3 view completed [facility] [address] [place] [address], [id number], 10/31/2024 08:24:25 Procedure Notes None recorded. Medical Equipment None Reported. Allergies Allergen ID Allergen Name Allergen Category Reaction Reaction Severity Criticality Documentation Date Start Date Code Code System Note Provider Name and Address Organization Details Recorded Time 320151 trazodone hydrochlo ride medicatio n Not available Not available Not available 08/30/20232018 11296 RxNorm React ion: Other : makes unres ponsi ve; Not Available Not Available Not Available 209920 diazepam medicatio n dyspnea Not available Not available 08/30/20232010 3322 RxNorm React ion: Short ness of breat h; Not Available Not Available Not Available 236385 morphine sulfate medicatio n seizure Not available Not available 08/30/20232010 21345 RxNorm React ion: Seizu res; Not Available Not Available Not Available 895269 Keflex medicatio n Not available Not available Not available 08/30/20232015 81866 7 RxNorm Not Available Not Available Not Available 287368 Elavil medicatio n Not available Not available Not available 08/30/20232015 56467 RxNorm Not Available Not Available Not Available Medications Name Sig Start Date Stop Date Status Note LastModified by Organization Details LastModified Time amoxicillin 500 mg capsule Take 4 capsules 1 hour prior to dental procedure 2023 active Not Available Not Available Not Avai lable pilocarpine 5 mg tablet TAKE 1 TABLET BY MOUTH THREE TIMES DAILY active Not Available Not Available No t Available azithromyci n 250 mg tablet TAKE 2 TABLETS BY MOUTH ON DAY 1, AND THEN TAKE 1 TABLET BY MOUTH ONCE A DAY ON DAY 2 THROUGH DAY 5 05/03 completed Not Available Not Available Not Available fluconazole 150 mg tablet TAKE 1 TABLET BY MOUTH ONCE FOR ONE DOSE active Not Available Not Available No t Available hydrocodone 5 mg-acetamin ophen 325 mg tablet Take 1 tablet every 4-6 hours by oral route as needed, for Severe Pain. 2023 active Not Available Not Available Not Avai lable minocycline 100 mg capsule TAKE 1 CAPSULE BY MOUTH TWICE DAILY WITH FOOD AND WATER. STOP IF . active Not Available Not Available No t Available meloxicam 15 mg tablet TAKE 1 TABLET BY MOUTH ONCE DAILY NEEDED 05/03 completed Not Available Not Available Not Available sulfacetami de sodium (acne) 10 % lotion (suspension ) Apply 1-3 times daily 2023 active last rx 05.31 .23 Not Available Not Available Not Available acetaminoph en 300 mg-codeine 30 mg tablet 05/03 completed Not Available Not Available Not Available tramadol 50 mg tablet TAKE 1 TABLET BY MOUTH THREE TIMES DAILY NEEDED 05/03 completed Not Available Not Available Not Available levothyroxi ne 100 mcg tablet TAKE 1 TABLET BY MOUTH ONCE DAILY active Not Available Not Available No t Available amoxicillin 875 mg tablet TAKE 1 TABLET BY MOUTH TWICE DAILY 05/03 completed Not Available Not Available Not Available doxycycline monohydrate 50 mg tablet Take 2 tab daily with food and full glass of water 05/03 completed last rx .20 .23 Not Available Not Available Not Available pantoprazol e 40 mg tablet,valerie yed release TAKE 1 TABLET BY MOUTH ONCE DAILY active Not Available Not Available No t Available metronidazo le 0.75 % topical cream APPLY 1 APPLICATI ON TOPICALLY TWICE DAILY active Not Available Not Available No t Available furosemide 20 mg tablet TAKE 1/2 (ONE-HALF ) TABLET BY MOUTH ONCE DAILY active Not Available Not Available No t Available ondansetron 4 mg disintegrat ing tablet DISSOLVE 1 TABLET IN MOUTH EVERY 8 HOURS NEEDED FOR NAUSEA active Not Available Not Available No t Available doxycycline hyclate 100 mg tablet TAKE 1 TABLET BY MOUTH TWICE DAILY WITH FOOD AND FULL GLASS OF WATER. (STOP IF PREGANT) 05/03 completed Not Available Not Available Not Available levothyroxi ne 112 mcg tablet TAKE 1 TABLET BY MOUTH ONCE DAILY active Not Available Not Available No t Available Trulicity 0.75 mg/0.5 mL subcutaneou s pen injector INJECT 0.75MG SUBCUTANE OUSLY ONCE WEEKLY active Not Available Not Available No t Available Rybelsus 7 mg tablet TAKE 1 TABLET BY MOUTH ONCE DAILY active Not Available Not Available No t Available Ozempic 2 mg/dose (8 mg/3 mL) subcutaneou s pen injector INJECT 2 MG SUBCUTANE OUSLY EVERY WEEK active Not Available Not Available No t Available Vitals Date Recorded Body height Heart rate Oxygen saturation Oxygen saturation in Arterial blood by Pulse oximetry Provider Name and Address Organization Details Last Updated DateTime 06/01/2024 157.48 cm 91 /min 97 % 97 % Caridad [facility] 06/01/2024 10:25:43 Date Recorded Body height Heart rate Oxygen saturation Oxygen saturation in Arterial blood by Pulse oximetry Provider Name and Address Organization Details Last Updated DateTime 06/15/2024 157.48 cm 62 /min 98 % 98 % [facility]/15/2024 12:43:46 Date Recorded Body height Heart rate Oxygen saturation Oxygen saturation in Arterial blood by Pulse oximetry Provider Name and Address Organization Details Last Updated DateTime 08/03/2024 157.48 cm 86 /min 98 % 98 % Sirena yan [facility] 08/03/2024 10:58:13 Date Recorded Body height Heart rate Oxygen saturation Oxygen saturation in Arterial blood by Pulse oximetry Provider Name and Address Organization Details Last Updated DateTime 10/26/2024 157.48 cm 75 /min 98 % 98 % Karen Mcgoevrn [facility] 10/26/2024 13:10:34 Social History Question Answer Notes LastModified by Organizat ion Details LastModified Time Tobacco Smoking Status Never Smoker Not Available Health Note 05/25/2024 11:01:03 Do You Have An Advance Directive? No [email or web address] Information not available 05/25/2024 What Is Your Level Of Alcohol Consumption? None [email or web address] Information not available 05/25/2024 What Is Your Level Of Caffeine Consumption? Occasional [email or web address] Information not available 05/25/2024 Are You Currently Employed? No [email or web address] Information not available 05/25/2024 What Is Your Occupation? Retired [email or web address] Information not available 05/25/2024 How Many Times Per Week Do You Exercise? Less Than 1 Time Per Week [email or web address] Information not available 05/25/2024 What Was The Date Of Your Most Recent Tobacco Screening? 06/01/2024 [email or web address] Information not available 05/25/2024 What Is Your Relationship Status? [email or web address] Information not available 05/25/2024 Do You Use Any Illicit Or Recreational Drugs? No [email or web address] Information not available 05/25/2024 Sex: Unknown Functional Status Question Answer Note LastModified by Organizat ion Details LastModified Time What is your exercise level? Occasional [email or web address] Information not available 05/25/2024 Mental Status None recorded. Family History Relationship Description Onset Age of this Age Resolved Age Notes LastModified by Organization Details LastModified Time Unspecified Relation Family history unknown [email or web address] Not available 2023 11:01:01 Medical History Condition Response Diabetes Y Anxiety Disorder N Bleeding Disorder N Attention-deficit Hyperactivity Disorder N High Blood Pressure N Arthritis N Hyperlipidemia N Cancer N Thyroid Problems Y Stroke Y Asthma N COPD N Depression N Anemia Y Seizures N Heart Disease N Fibromyalgia Y Osteoporosis N Kidney Disease N Gynecological HistoryNo gynecological history recorded. Obstetrics History GPAL:G 0 P 0 0 0 0 Past Encounters Encounter ID Performer Location Encounter Start Date Encounter Closed Date Diagnosis/Indication Diagnosis SNOMED-CT Code Diagnosis ICD10 Code Diagnosis Note [id number] Nigel Oneil PA-C [facility] [place] [address] [place] [address],[address] [place] [phone] 05/03/2024 14:54:02 05/03/2024 16:33:45 Osteoarthritis of left knee joint 8468553071 28497 M17.12 Acquired v arus deformity of left knee 4322893452 48613 M21.162 History of right total knee replacement 7793934700 090770 Z96.651 History of transient ischemic attack 277070915 Z86.73 [id number] Temo Rodriguez MD [facility] [place] [address] [place] [address],[address] [place] [phone] 06/01/2024 09:45:18 06/01/2024 11:31:35 Osteoarthritis of left knee joint 5307688237 78596 M17.12 Preprocedu ral examination done 8429823870 17638 Z01.818 [id number] Temo Rodriguez MD [facility] [place] [address] [place] [address],[address] [place] [phone] 06/15/2024 12:03:08 06/15/2024 13:51:05 History of total knee arthroplasty 3271750176 105 Z96.652 [id number] Caridad Maldonado [facility] [place] [address] [place] [address] 06/27/2024 14:29:24 07/03/2024 12:04:39 [id number] Temo Rodriguez MD [facility] [place] [address] [place] [facility] [address] 08/03/2024 10:44:37 08/03/2024 12:28:22 History of total knee arthroplasty 2425310993 105 Z96.652 [id number] Nigel Oneil PA-C [facility] [place] [address] [facility] [place] [address] 10/26/2024 12:45:48 10/26/2024 13:20:35 History of total knee arthroplasty 9198444542 105 Z96.652 Health Concerns Section Related Observation LastModified by Organization Detai ls LastModified Time None Recorded Concern Status LastModified by Organization Details LastModified Time None Recorded Advance Directives Directive N: Payers Encounter Date Sequence Insurance Name Policy Number Policy Hankins Covered Member ID Hankins Member ID Guarantor Name 06/01/2024 1 [employer] (MEDICARE REPLACEMENT PPO) [id number] Ruby L Reema [id number] Ruby Reema 06/15/2024 1 [employer] (MEDICARE REPLACEMENT PPO) [id number] Ruby L Reema [id number] Ruby Reema 06/27/2024 1 [employer] (MEDICARE REPLACEMENT PPO) [id number] Ruby L Reema [id number] Ruyb Reema 08/03/2024 1 [employer] (MEDICARE REPLACEMENT PPO) [id number] Ruby L Reema [id number] Ruby Reema 10/26/2024 1 [employer] (MEDICARE REPLACEMENT PPO) [id number] Ruby L Reema [id number] Ruby Reema Notes Date Note Type Note Provider Name and Address Organization Details Recorded Time text/html Ruby Paredess a 68 year oldfemalepresenting for care. Temo Rodriguez MD [address] [place] [address], [phone], [facility] 06/12/2024 22:37:27 5 text/html Ruby Pak a 69 year oldfemalepresenting for care. Temo Rodriguez MD [address] [place] [address], [phone], [facility] 08/09/2024 15:40:42 5 text/html Patient was seen in the office today forXR, Koos, 3mo POF LTKA 06-13-24 . Patient states their pain level is at5/10 . Nigel Oneil PA-C [address] [place] [address], [phone], [facility] 10/26/2024 13:20:29 OBGyn Episode No OBEpisode recorded.
--- OUTSIDE RECORDS SUMMARY | 2024-11-25 07:09 | XMS_ITS | Encounter Summary ---
Author Organization [facility] Address [address] [place] [address] Care Team Providers Care Network Consultant Name Role Phone Alton Marie MD Primary Care Provider [phone] Mike Brooks MD Unavailable [phone] Linda Schulte MD Unavailable Mai Bauer [facility]- Unavailable [phone] Juan Cadena MD Unavailable Ho Mac MD Unavailable [phone] Tobi Davis MD Primary Care Provider Jessica Orr MD Unavailable Temo Rodriguez MD Unavailable [phone] Encounter Details Date Type Department Care Team (Late st Contact Info) Description 10/16/2017 Abstract [facility] CONVERSION [address] [place] [address] , Generic Conversion, Social History Tobacco Use Types Packs/Day Years Used Date Smoking Tobacco: Never Smokeless Tobacco: Never Alcohol Use Standard Drinks/Week Comments Yes 0 (1 standard drink = 0.6 oz pur e alcohol) occasional glass of wine Comments Unknown Sex and Gender Information Value Date Recorded Sex Assigned at Female 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 Not on file [...] documented as of this encounter Care Teams Network Consultant Relationship Specialty Start Date End Date Alton Marie MD [address] [place] [phone] PCP - General FAMILY PRACTICE 07/13/16 10/16/18 Tobi Davis MD [address] [place] [phone] PCP - [facility] PR[facility] 10/17/18 Mike Brooks MD [address] [place] [phone] CARDIOVASCULAR DISEASE 10/12/16 Linda Schulte MD [address] [place] [address] EP Hat Braider CLINICAL CARDIAC ELECTROPHYSIOLOGY 03/29/17 Mai Bauer FNP-BC [address] [place] [address] CARDIOVASCULAR DISEASE 10/21/17 8 Juan Cadena MD [address] [place] [address] CARDIOVASCULAR DISEASE 10/21/17 8 Ho Mac MD [address] [place] [address] [place] Hat Braider CARDIOVASCULAR DISEASE 11/05/17 Jessica Orr MD [address] [phone] Surgeon NEUROLOGICAL SURGERY 04/07/19 Temo Rodriguez MD [address] [phone] ORTHOPAEDIC SURGERY 05/30/24 documented as of this encounter
--- OUTSIDE RECORDS SUMMARY | 2024-11-25 07:09 | XMS_ITS | Clinical Summary ---
Author Organization [facility] Care Team Providers Care In Home Aide Name Role Phone Unavailable Primary Care Provider Unavailabl e Social History Tobacco Use Types Packs/Day Years Used Date Smoking Tobacco: Never Assessed Comments Unknown Sex and Gender Information Value Date Recorded Sex Assigned at Not on file Legal Sex Female 12:25 AM CDT Gender Identity Not on file Sexual Orientation Not on file Plan of Treatment Health Maintenance Due Date Last Done Comments DEXA Bone Density 1955 Hepatitis C Virus (HCV) Screening 1955 TdaP Immunization 1955 Colonoscopy 2000 Colorectal Cancer Screening 2000 Cologuard 2005 Immunochemical Fecal Occult Blood 2005 Mammogram 2005 Pneumococcal Immunization (5 0+ years) (1 of 1 - PCV) 2005 Zoster Immunization (1 of 2) 2005 Influenza Immunization (#1) 04/02/202404/03, 04/22/2016, 05/22/2013 SARS-COV-2 Immunization (2023- season) 2024 Respiratory Syncytial Virus (RSV) Immunization (Adult) (1 - 1-dose 75+ series) 2030 Hepatitis B Immunization Aged Out No longer eligible based on patient's age to complete this topic Meningococcal Immunization (ACWY) Aged Out No longer eligible b ased on patient's age to complete this topic Rotavirus Immunization Aged Out No lo nger eligible based on patient's age to complete this topic
--- OUTSIDE RECORDS SUMMARY | 2024-11-25 07:09 | XMS_ITS | Encounter Summary ---
Author Organization [facility] Address [address] [place] [address] Care Team Providers Care Tag Stringer Name Role Phone Alton Marie MD Primary Care Provider [phone] Yosvany Bahena MD Unavailable [phone] Mike Brooks MD Unavailable [phone] Linda Schulte MD Unavailable Mai Bauer [facility] Unavailable [phone] Juan Cadena MD Unavailable Ho Mac MD Unavailable [phone] Tobi Davis MD Primary Care Provider [phone] Jessica Orr MD Unavailable Temo Rodriguez MD Unavailable [phone] Encounter Details Date Type Department Care Team (Late st Contact Info) Description 10/12/2016 Abstract [facility] [address] [place] [address] Mike Brooks MD [address] [facility], [address] [place] [address] Social History Tobacco Use Types Packs/Day Years Used Date Smoking Tobacco: Never Alcohol Use Standard Drinks/Week Comments No 0 (1 standard drink = 0.6 oz pur e alcohol) Comments Unknown Sex and Gender Information Value Date Recorded Sex Assigned at Female 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 Not on file [...] documented as of this encounter Care Teams Tag Stringer Relationship Specialty Start Date End Date Alton Marie MD [address] [place] [phone] PCP - General FAMILY PRACTICE 07/13/16 10/16/18 Tobi Davis MD [address] [place] [phone] PCP - General FAMILY PRACTICE 10/17/18 Yosvany Bahena MD [address] [place] [phone] CARDIOVASCULAR DISEASE 07/13/16 7 Mike Brooks MD [address] [place] [phone] CARDIOVASCULAR DISEASE 10/12/16 Linda Schulte MD [address] [place] [phone] EP Shipping Point Inspector CLINICAL CARDIAC ELECTROPHYSIOLOGY 03/29/17 Mai Bauer FNP-BC [address] [place] [address] CARDIOVASCULAR DISEASE 10/21/17 8 Juan Cadena MD [address] [place] [phone] CARDIOVASCULAR DISEASE 10/21/17 8 Ho Mac MD [address] [place] [phone] [place] Shipping Point Inspector CARDIOVASCULAR DISEASE 11/05/17 Jessica Orr MD [address] [phone] Surgeon NEUROLOGICAL SURGERY 04/07/19 Temo Rodriguez MD [address] [phone] ORTHOPAEDIC SURGERY 05/30/24 documented as of this encounter
[2024-11-25 07:27] LABS: Hemoglobin A1C 6.2 % (<5.7)
[2024-11-25 07:36] LABS: Alanine Aminotransferase 24 U/L (14-59); Albumin Level 3.6 g/dL (3.4-5.0); Alkaline Phosphatase 120 U/L (46-116); Anion Gap 9 mmol/L (4-12); Aspartate Amino Transferase 21 U/L (15-37); Bilirubin,Total 0.6 mg/dL (0.00-1.00); Blood Urea Nitrogen 18 mg/dL (7-18); Calcium 9.3 mg/dL (8.5-10.1); Carbon Dioxide 28 mmol/L (21-32); Chloride 104 mmol/L (98-108); Cholesterol 153 mg/dL (0-200); Estimated Glomerular Filt Rate 46; Glucose 102 mg/dL (70-99); HDL Direct 78 mg/dL (40-60); Osmolality Calculated 293 mOsm/kg (285-295); Potassium 4.6 mmol/L (3.5-5.1); Sodium 141 mmol/L (136-145); Thyroid Stimulating Hormone 0.12 uIU/mL (0.36-3.74); Total Protein 7.1 g/dL (6.4-8.2)
[2024-11-25 07:47] LABS: LDL Cholesterol Calculated 68 mg/dL (<130); Triglycerides 34 mg/dL (0-150)
== END 2024-11-25 07:04 | disposition home or self-care (01) ==
LOC: CHSLAB 07:06
PROVIDERS: PCP Family Medicine; Visit Provider Family Medicine
DX: E11.9 Type 2 diabetes mellitus without complications (principal); E03.9 Hypothyroidism, unspecified
CPT/HCPCS: 36415; 80053; 80061; 83036; 84443

== ENCOUNTER 2025-02-10 08:26 | Emergency (ER) | payer OTHER, SELFPAY ==
--- NOTE | ~2025-02-10 | XR_ITS ---
EXAMINATION: XR knee LT 3V DATE: 02/10/2025 08:45 INDICATION: Medial left knee pain post injury TECHNIQUE: Anteroposterior, 2 oblique and crosstable lateral views of the left knee were obtained COMPARISON: None. FINDINGS: Left total knee arthroplasty without patellar resurfacing which appears well seated in near-anatomic alignment. No fracture. No definitive joint effusion. Mild prepatellar soft tissue swelling. IMPRESSION: 1. Left total knee arthroplasty. No acute osseous abnormality. Reviewed, dictated and finalized at location A.
[2025-02-10 08:26] VITALS: BP 116/73; PULSE 92; RESP 18; TEMP 36.9; O2SAT 100
--- OUTSIDE RECORDS SUMMARY | 2025-02-10 08:33 | XMS_ITS | Clinical Summary ---
Author Organization [facility] Address [address] [place] [address] Care Team Providers Care Civil Engineering Draftsperson Name Role Phone Mike Brooks MD Unavailable [phone] Linda Schulte MD Unavailable Ho Mac MD Unavailable [phone] Tobi Pollack MD Primary Care Provider Jessica Orr MD Unavailable Temo Rodriguez MD Unavailable [phone] Allergies Active Allergy Reactions Criticality Noted [...] both hips 07/01 CVA (cerebral vascular accident) ([facility]) 11/09/2017 Diabetes ([facility]) 11/09/2017 GERD (gastroesophageal reflux disease) 8 Sleep apnea 11/09/2017 Overview (11/09/2017): does not use C-pap due to sinus issues TIA (transient ischemic attack) 11/09/2017 Chest discomfort 10/12/2016 PFO (patent foramen ovale) ([facility]) 10/12/2016 Syncope and collapse 07/14/2016 Vasovagal syncope 07/14/2016 Encounters Date Type Department Care Team Description 11/20/2024 9:30 AM CDT - 11/20/2024 11:59 PM CDT Hospital Encounter [facility] [address] [place] [address] Tobi Pollack MD Discharge Disposition: Home or Self Care (Routine Discharge) 11/20/2024 Travel from Last 3 Months Family History [...] pur e alcohol) occasional glass of wine [employer] Utilities Answer Date Recorded In the past 12 months has e electric, gas, oil, or water [employer] threatened to shut off services in your [...] place to sleep or slept in a assisted (including now)? 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 Not on file [...] 4:34 PM CDT Height 157.5 cm (5' 2) 10/20/2024 4:34 PM CDT Body Mass Index [...] this topic Medical Devices Implanted Type Area Kiln Placer Device Identifier Shelf Expiration Date Model / Serial / Lot Cement Bone Biomet 40gm - [id number] Implanted:Qty : 2 on 06/13/2024 by Temo Rodriguez MD at [facility] Cement Implant Left: Knee [employer] [id number] 08/01/2026 [id number] / / [id number] Femur Doris Persona Cr Standard Size 5 Left - [id number] Implanted:Qty : 1 on 06/13/2024 by Temo Rodriguez MD at [facility] Knee Components Left: Knee [employer] [id number] 12/07/2033 [id number] / / [id number] Tibia Stemmed Base Doris Persona Size D Left - [id number] Implanted:Qty : 1 on 06/13/2024 by Temo Rodriguez MD at [facility] Knee Components Left: Knee [employer] [id number] 04/19/2033 [id number] / / [id number] Insert Artc 4-5 Cd 12mm Kn Lt Crcte Rtn Vivacit-E Persona - [id number] Implanted:Qty : 1 on 06/13/2024 by Temo Rodriguez MD at [facility] Knee Components Left: Knee [employer] [id number] 10/29/2027 [id number] / / [id number] Screw Headed Mis Doris 48mm - [id number] Implanted:Qty : 1 on 06/13/2024 by Temo Rodriguez MD at [facility] Screw Left: Knee [employer] [id number] 01/12/2032 [id number] / / [id number] Screw Headed Mis Doris 48mm - [id number] Implanted:Qty : 1 on 06/13/2024 by Temo Rodriguez MD at [facility] Screw Left: Knee [employer] [id number] 02/18/2034 [id number] / / [id number] Explanted Type Area Kiln Placer Device Identifier Shelf Expiration Date Model / Serial / Lot Drill Bit Pin Doris Headless Trocar - [id number] Explanted:Qty: 1 on 06/13/2024 by Temo Rodriguez MD at [facility] Drill Left: Knee [employer] [id number] 05/17/2034 [id number] / / [id number] Procedures Procedure Name Priority Date/Time Associated Diagnosis Comments XR LUMB SPINE 3V Routine 11/20/2024 9:41 AM CDT Lumbar strain, sequela BONE DENSITY/DEXA Routine 09/21/2023 12: 58 PM PET HOUSE SITTER Postmenopausal status LIPID PANEL TIMED 07/25/2023 5:51 AM PET HOUSE SITTER HEMOGLOBIN, GLYCOSYLATED Routine 07/25/2023 12:30 AM PET HOUSE SITTER MG DIAG W DOMI RT DIGI Routine 06/23/2023 12:42 PM PET HOUSE SITTER Abnormal mammogram HEPATITIS PANEL,ACUTE Routine 08/19/2018 1:25 PM PET HOUSE SITTER from Last 3 Months or Most Recently [...] 10:22 AM Narrative 11/20/2024 10:23 AM CDT [address] [place] [address] Examination: Lumbar spine Exam time: 0916 hours. [...] Procedure Note Alden Hathaway MD - 11/20/[address] [place] [address] Examination: Lumbar spine Exam time: 0916 hours. [...] By: Alden Hathaway MD, 11/20/2024 10:22 AM Tobi Pollack MD GENERAL IMAGING Final Resul t * BONE DENSITY/DEXA (09/21/2023 12:58 PM PET HOUSE SITTER) Anatomical Region Laterality Modality Bone Bone Density 09/21/2023 1:36 PM PET HOUSE SITTER Impressions 09/21/2023 1:39 PM PET HOUSE SITTER Impression: BMD measured at both femoral necks at WHO category level of osteopenia. BMD measured at both total hips and AP lumbar spine at level of normal. Ordered By: BERTHA GARCIA Interpreted By: London Sandhu MD, 09/21/2023 1:36 PM Narrative 09/21/2023 1:39 PM PET HOUSE SITTER Examination: DEXA Bone densitometry EXAM DATE: 09/21/2023 [...] at level of normal. Ordered By: BERTHA GARCIA Interpreted By: London Sandhu MD, 09/21/2023 1:36 PM us Bertha Garcia MD DEXA Final Resu lt * LIPID PANEL (07/25/2023 5:51 AM PET HOUSE SITTER) [facility] CHOLESTEROL 164 MG/DL 07/25/2023 7:[address] [facility] Comment:DESIRABLE: <200 TRIGLYCERIDES 51 MG/DL 07/25/2023 7:[address] [facility] Comment:<150 NORMAL HDL 80 >49 MG/DL 07/25/2023 7:34 AM [facility] LDL (CALCULATED) 74 MG/DL 07/25/20 7:34 AM [facility] Comment:<100 OPTIMAL VLDL CALCULATION 10 MG/DL 07/25/20 7:34 AM [facility] Comment:REFERENCE RANGE NOT ESTABLISHED CHOL/HDL RATIO 2.0 07/25/2023 7:[address] [facility] Comment:REFERENCE RANGE NOT ESTABLISHED LDL/HDL 0.9 07/25/2023 7:34 AM [facility] Comment:REFERENCE RANGE NOT ESTABLISHED NON HDL CHOLESTEROL 84 MG/DL 07/25/2023 7:34 AM [facility] Comment:REFERENCE RANGE NOT ESTABLISHED 07/25/2023 5:51 AM PET HOUSE SITTER us Yao Bernabe MD LABORATORY Final Result Performing Organization Address City/[facility] [employer] de Phone Number [facility] [address] [place] [address], [place] [phone] * HEMOGLOBIN, GLYCATED (07/25/2023 12:30 AM PET HOUSE SITTER) HGB A1C 5.6 <5.7 % 07/25/2023 7:[address] [facility] ESTIMATED AVG GLUCOSE 114 74 - 114 MG/DL 07/25/2023 7:46 AM [facility] 07/25/2023 12:3 0 AM PET HOUSE SITTER us Yao Bernabe MD LABORATORY Final Result Performing Organization Address [facility] [employer] de Phone Number [facility] [address] [place] [address], [place] [phone] [id number] * MG DIAG W DOMI RT DIGI (06/23/2023 12:42 PM PET HOUSE SITTER) Anatomical Region Laterality Modality Breast Right Mammography, Rad iographic Imaging 06/23/2023 1:23 PM PET HOUSE SITTER Narrative 06/23/2023 1:30 PM PET HOUSE SITTER Examination: Digital right diagnostic mammogram with CAD. [id number] Clinical history: Follow-up of probably benign nodule. [...] harmonic imaging improves conspicuity compared to previous. [place] appearing tissue architecture is otherwise demonstrated. No [...] By: Alden Hathaway MD, 06/23/2023 1:23 PM Tobi Pollack MD MAMMO Final Resul t * HEPATITIS PANEL,ACUTE (08/19/2018 1:25 PM PET HOUSE SITTER) HEPATITIS B SURFACE AG NON-REACT ABI NON-REACT ABI 08/22/2018 11:[address] [facility] Comment:HBsAg NOT DETECTED. HEP B CORE IGM NON-REACT ABI NON-REACT ABI 08/22/2018 11:[address] [facility] Comment: IgM ANTI HBc NOT DETECTED. DOES NOT EXCLUDE THE POSSIBILITY OF EXPOSURE TO OR INFECTION WITH HBV. NO RETEST REQUIRED.HIGH DOSES OF BIOTIN MAY INTERFERE WITH THIS TEST RESULT. CORRELATION TO CLINICAL HISTORY AND PRESENTATION RECOMMENDED. HAV IGM NON-REACT ABI NON-REACT ABI 08/22/2018 11:[address] [facility] Comment: IgM ANTI HAV NOT DETECTED. DOES NOT EXCLUDE THE POSSIBILITY OF EXPOSURE TO OR INFECTION WITH HAV. LEVELS OF IgM ANTI HAV MAY BE BELOW THE CUTOFF IN EARLY INFECTION. HEPATITIS C AB NON-REACT ABI NON-REACT ABI 08/22/2018 11:[address] [facility] Comment: ANTIBODIES TO HCV NOT DETECTED. DOES NOT EXCLUDE THE POSSIBILITY OF EXPOSURE TO HCV. 08/19/2018 1:25 PM PET HOUSE SITTER 08/19/2018 2:34 PM PET HOUSE SITTER us Generic Conversion Md [facility] Final R esult [facility] [address] [place] [address], [id number] from Last 3 Months or Most Recently Relevant to Health Maintenance Insurance [employer] Advance Directives * Full Code (Latest Code Status on File) Date Activated Date Inactivated Comments 06/13/2024 3:46 PM 06/14/2024 6:04 PM * Full Code Date Activated Date Inactivated Comments 07/25/2023 12:08 AM 07/25/2023 3:16 PM Care Teams Civil Engineering Draftsperson Relationship Specialty Start Date End Date Tobi Pollack MD [address] [place] [phone] PCP - General FAMILY PRACTICE 10/17/18 Mike Brooks MD CARDIOVASCULAR DISEASE 10/12/16 Linda Schulte MD [address] [place] [phone] EP Community Case Manager CLINICAL CARDIAC ELECTROPHYSIOLOGY 03/29/17 Ho Mac MD [address] [place] [phone] [place] Community Case Manager CARDIOVASCULAR DISEASE 11/05/17 Jessica Orr MD [address] [place] [address] Surgeon NEUROLOGICAL SURGERY 04/07/19 Temo Rodriguez MD [address] [phone] ORTHOPAEDIC SURGERY 05/30/24
--- OUTSIDE RECORDS SUMMARY | 2025-02-10 08:33 | XMS_ITS | Clinical Summary ---
Author Organization [facility] Address [address] [place] [address] Care Team Providers Care Leak Inspector Name Role Phone Branden Kearney MD Primary Care Provider + Source Comments [facility],non-owned Affiliates and Associated Physician Practices is amultiple site organization consisting of ambulatory clinics and hospital sitesin [place], [place], [place] and [place]. This disclosure is being madepursuant to the Care Everywhere program and may not contain all information available regarding this patient. Last updated 18.[facility] Allergies Active Allergy Reactions Criticality Noted Date [...] on file Legal Sex Female 6:48 PM AEMT Gender Identity Not on file Sexual Orientation [...] VACCINE (1 of 2) 2005 COVID-19 VACCINE (1 - 2023-2 5 season) 2024 DEPRESSION SCREENING 08/02/2024 INFLUENZA VACCINE (#1) 2025 Respiratory Syncytial Virus (RSV) Vaccine Pt: [...] age to complete this topic Care Teams Leak Inspector Relationship Specialty Start Date End Date Branden Kearney MD [address] [place] [phone] PCP - General 08/19/12
--- OUTSIDE RECORDS SUMMARY | 2025-02-10 08:33 | XMS_ITS | Clinical Summary ---
Author Organization [facility] Care Team Providers Care Environmental Studies Program Director Name Role Phone Unavailable Primary Care Provider [...]
--- OUTSIDE RECORDS SUMMARY | 2025-02-10 08:33 | XMS_ITS | Encounter Summary ---
Author Organization [facility] Address [address] [place] [address] Care Team Providers Care Gastroenterology Professor Name Role Phone Mike Brooks MD Unavailable [phone] Linda Schulte MD Unavailable Ho Mac MD Unavailable [phone] Tobi Davis MD Primary Care Provider [phone] Jessica Orr MD Unavailable Temo Rodriguez MD Unavailable [phone] Encounter Details Date Type Department Care Team (Late st Contact Info) Description 07/27/2023 Hospital Follow-up Call [facility] [address] [place] [address] Ruchi Omer, RN Social History Tobacco Use Types Packs/Day Years Used Date Smoking Tobacco: Never Smokeless Tobacco: Never Alcohol Use Standard Drinks/Week Comments Yes 0 (1 standard drink = 0.6 oz pur e alcohol) occasional glass of wine [facility] Utilities Answer Date Recorded In the past 12 months has e [facility], gas, oil, or water [employer] threatened to shut off services in your [...] place to sleep or slept in a fpc (including now)? 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 Not on file [...] on filedocumented in this encounter Care Teams Gastroenterology Professor Relationship Specialty Start Date End Date Tobi Davis MD [address] [place] [phone] PCP - General FAMILY PRACTICE 10/17/18 Mike Brooks MD CARDIOVASCULAR DISEASE 10/12/16 Linda Schulte MD [address] [place] [phone] EP Supervisor Painting Department CLINICAL CARDIAC ELECTROPHYSIOLOGY 03/29/17 Ho Mac MD [address] [place] [phone] Julian Supervisor Painting Department CARDIOVASCULAR DISEASE 11/05/17 Jessica Orr MD [address] [place] [address] Surgeon NEUROLOGICAL SURGERY 04/07/19 Temo Rodriguez MD [address] [place] [phone] ORTHOPAEDIC SURGERY 05/30/24 documented as of this encounter
--- OUTSIDE RECORDS SUMMARY | 2025-02-10 08:33 | XMS_ITS | Encounter Summary ---
Author Organization [facility] Address [address] [place] [address] Care Team Providers Care Quarter Inspector Name Role Phone Alton Marie MD Primary Care Provider [phone] Yosvany Bahena MD Unavailable [phone] Mike Brooks MD Unavailable [phone] Linda Schulte MD Unavailable Mai Bauer [facility] Unavailable [phone] Juan Cadena MD Unavailable Ho Mac MD Unavailable [phone] Tobi Davis MD Primary Care Provider Jessica Orr MD Unavailable Temo oRdriguez MD Unavailable [phone] Encounter Details Date Type Department Care Team (Late st Contact Info) Description 10/12/2016 Abstract [facility] [address] [place] [address] Mike Brooks MD [address], [address] [place] [address] Social History Tobacco Use Types Packs/Day Years Used Date Smoking Tobacco: Never Alcohol Use Standard Drinks/Week Comments No 0 (1 standard drink = 0.6 oz pur e alcohol) Comments Unknown Sex and Gender Information Value Date Recorded Sex Assigned at Female 08/17/2024 2:23 PM AUTOMOTIVE SERVICE MANAGEMENT TEACHER Legal Sex Female 6:09 PM CDT Gender Identity Not on file Sexual Orientation Not on file 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 Not on file [...] documented as of this encounter Care Teams Quarter Inspector Relationship Specialty Start Date End Date Alton Marie MD [address] [place] [phone] PCP - General FAMILY PRACTICE 07/13/16 10/16/18 Tobi Davis MD [address] [place] [phone] PCP - General FAMILY PRACTICE 10/17/18 Yosvany Bahena MD [address] [place] [phone] CARDIOVASCULAR DISEASE 07/13/16 Mike Brooks MD [address] [place] [address] CARDIOVASCULAR DISEASE 10/12/16 Linda Schulte MD [address] [place] [phone] EP Bi Technical Lead CLINICAL CARDIAC ELECTROPHYSIOLOGY 03/29/17 Mai Bauer FNP-BC [address] [place] [phone] CARDIOVASCULAR DISEASE 10/21/17 8 Juan Cadena MD [address] [place] [address] CARDIOVASCULAR DISEASE 10/21/17 8 Ho Mac MD [address] [place] [phone] [place] Bi Technical Lead CARDIOVASCULAR DISEASE 11/05/17 Jessica Orr MD [address] [place] [phone] Surgeon NEUROLOGICAL SURGERY 04/07/19 Temo Rodriguez MD [address] [phone] ORTHOPAEDIC SURGERY 05/30/24 documented as of this encounter
--- OUTSIDE RECORDS SUMMARY | 2025-02-10 08:33 | XMS_ITS | Data Portability ---
Author Organization [facility], [address] [facility] ([place]) Address [address] 4th [place] [address] Care Team Providers Care Real Estate Investor Name Role Phone NELIDA BUNCH Primary Care Provider [phone] NELIDA POLLACK Primary Care Provider Assessment Encounter Date Assessment [...] me before then for any reason. [email or web address] Not available 06/01/2024 12:09:49 06/15/2024 06/15/2024 CHIEF COMPLAINT: Follow up left knee replacement performed two days ago on June 13, 2024, at [facility]. I NTERVAL HISTORY: The patient presents today [...] expected pain which is being controlled with [place]. She denies nausea, vomiting, dizziness, lightheadedness, headache, [...] Please refer to the formal radiology at [facility] for more detail. PLAN: We reviewed the [...] needs me before that next visit. [email or web address] Not available 06/16/2024 12:59:36 08/03/2024 08/03/2024 CHIEF [...] longer distances. She is only taking occasional [place] after physical therapy or at night to [...] she needs me sooner for any reason. [facility] [email or web address] Not available 08/03/2024 13:48:00 10/26/2024 10/26/2024 [...] the left knee performed today 10-26-2024 at [facility] was independently reviewed with the patient [...] of loose bodies within the joint line. [place] view demonstrates nonresurfaced patella without evidence of [...] Organization Details Last Modified Time Details Appointments Estab jim [place] nt 15.ES T 2024 02:30P M Dr. Temo Rodriguez Not available Not available Not available OCT 10.ES T 2024 10:20A M Ophthalmology Not [...] Abnormal Flag Note LastModifiedBy Organization Detail LastModifiedTime 06/13/2006/13/2024 TYPE AND SCREE N ABO/Rh(D) O POSITI VE Not Available Oh Only - [facility] [address] [place], [address], 06/13/2024 13:07:35 06/13/2006/13/2024 TYPE AND SCREE N antibody screen NEGATI VE Not Available Oh Only - [facility] [address] [place], [address], 06/13/2024 13:07:35 06/13/20 24 06/13/2024 TYPE AND SCREE N xm expiration 2023,2 359 Not Available Oh Only - [facility] [address] [place], [address], 06/13/2024 13:07:35 06/13/20 24 06/13/2024 POC GLUCO SE POC glucose 119 70-109 high Not Available [facility] [address] [place], [address], 06/13/2024 15:02:33 06/13/20 24 06/13/2024 TYPE AND SCREE N ABO/Rh(D) Pendin g Not Available Oh Only - [facility] [address] [place], [address], 06/13/2024 12:21:50 06/13/20 24 06/13/2024 TYPE AND SCREE N antibody screen Pendin g Not Available Oh Only - [facility] [address] [place], [address], 06/13/2024 12:21:50 06/13/20 24 06/13/2024 TYPE AND SCREE N xm expiration 2023,2 359 Not Available Oh Only - [facility] [address] [place], [address], 06/13/2024 12:21:50 06/13/20 24 06/13/2024 POC GLUCO SE POC glucose 111 70-109 high Not Available [facility] [address] [place], [address], 06/13/2024 10:46:48 06/13/20 24 06/13/2024 TYPE AND SCREE N ABO/Rh(D) Pendin g Not Available Oh Only - [facility] [address] [place], [address], 06/13/2024 10:47:34 06/13/20 24 06/13/2024 TYPE AND SCREE N antibody screen Pendin g Not Available Oh Only - [facility] [address] [place], [address], 06/13/2024 10:47:34 06/13/20 24 06/13/2024 TYPE AND SCREE N xm expiration 2023,2 359 Not Available Oh Only - [facility] [address] [place], [address], 06/13/2024 10:47:34 05/03/20 24 05/03/2024 XR, knee, 4 or more view [address] [address] Teleph one Name: Nahum Benavidez 1822Ex am Date: 2023 [...] Page PAGE 1 of NUMPAG ES 1 [email or web address] Oh Only - [facility] Radiology [address] [place] [address], [address], 05/08/2024 22:52:21 05/05/20 24 01/16/2014 XR, knee, 4 or more view No observ ation record ed. [email or web address] Sc Only - Sc Radiology [address] [place] [address], [address], 05/05/2024 17:52:38 05/29/20 24 12/08/2023 imagi ng/di agnos tic resul t No observ ation record ed. [email or web address] Not Available 18:20:55 06/01/20 24 06/01/2024 XR, bone lengt h [facility] [address] [place] [address] Teleph one Name: Nahum Benavidez 1822Ex am Date: 2023 [...] 9:17 AM cc: Page PAGE 1 of [facility] 1 [email or web address] Sc Only - Sc Radiology [address] [place] [address], [address], 06/13/2024 08:31:21 08/03/1908/03/2024 XR, knee, 3 view [facility] [address] [address] Teleph one [phone] Name: Nahum Benavidez 1822Ex am Date: 2024 [...] 9:58 AM cc: Page PAGE 1 of [facility] 1 [email or web address] Oh Only - Oh Radiology [facility], [address], 08/03/2024 14:07:30 10/27/19 25 10/26/2024 XR, knee, [address] [address] Teleph one Name: Nahum Benavidez 1822Ex am Date: 2024 [...] trace knee joint effusi on. The patell a is well situat ed within the trochl ear groove on the sunris e view. IMPRES JACKLYN: 1. Left total knee arthro plasty withou t peripr osthet ic fractu re or eviden ce of loosen ing. 2. Trace knee joint effusi on. Electr onical ly signed in Jay cribe by: SNEHA ROMAN MD on:10/01 12:15 PM cc: Page PAGE 1 of GINNA JAIMES 1 Oh Only - Oh Radiology [address] [place] [address], [address], 10/31/2024 08:24:25 02/04/20 25 08/23/2018 imagi ng/di agnos tic resul t No observ ation record ed. [email or web address] Not Available 0 02/03/2025 07:41:32 02/04/20 25 08/23/2018 imagi ng/di agnos tic resul t No observ ation record ed. [email or web address] Not Available 0 02/03/2025 07:41:32 02/04/20 25 10/12/2017 imagi ng/di agnos tic resul t No observ ation record ed. [email or web address] Not Available 0 02/03/2025 07:41:34 02/04/20 25 01/19/2019 imagi ng/di agnos tic resul t No observ ation record ed. [email or web address] Not Available 0 02/03/2025 07:41:37 02/04/20 25 01/31/2019 imagi ng/di agnos tic resul t No observ ation record ed. [email or web address] Not Available 0 02/03/2025 07:41:41 02/04/20 25 03/15/2019 imagi ng/di agnos tic resul t No observ ation record ed. [email or web address] Not Available 0 02/03/2025 07:41:44 02/04/20 25 07/04/2020 imagi ng/di agnos tic resul t No observ ation record ed. [email or web address] Not Available 0 02/03/2025 07:41:56 Result Notes Documentation Provider Name and Address Organization Details Recorded Time Xr, Bone Length : [address] [address] Name: Ruby Benavidez Date: 06/01/2024 Age: 68Physician: Temo Rodriguez : 1955Examination: XR TRIPANEL LEFT EXAM: XR TRIPANEL LEFT HISTORY: Upcoming left knee replacement. Having pain in left knee for a couple months FINDINGS: Standing frontal view of the left lower extremity submitted. There is moderate to severe medial compartment osteoarthritis. No acute fracture. IMPRESSION: Moderate to severe medial compartment osteoarthritis Electronically signed in [employer]elbe by: PRAMOD BORIS on:06/01/2024 9:17 AM cc: Page PAGE 1 of TripLingo 1 Temo Rodriguez MD [address] [place] [address], [phone], [facility] 06/13/2024 08:31:21 Xr, Knee, 3 View : [facility] 1st [address] [address] Name: Ruby Benavidez Date: 08/03/2024 Age: 69Physician: Temo Rodriguez : 1955Examination: XR KNEE 3 VIEWS LEFT EXAM: Left Knee, 3 views HISTORY: Follow up 6 weeks post-op left knee replacement 06/21/24. No current complaints.. COMPARISON: 05/03/2024 FINDINGS: The patient is status post total knee arthroplasty. The hardware is intact. The osseous alignment is unchanged. There is no fracture or dislocation. There is no effusion. IMPRESSION: Status post total knee arthroplasty without complication Electronically signed in [employer] Pet[employer] by: NAFISA ALICEA MD on:08/03/2024 9:58 AM cc: Page PAGE 1 of TripLingo 1 Teom Rodriguez MD [address] [place] [address], [phone], [facility] 08/03/2024 14:07:30 Xr, Knee, 3 View : [facility] 1st [address] [address] Name: Ruby Benavidez Date: 10/26/2024 Age: 69Physician: Temo Rodriguez : 1955Examination: XR KNEE 3 VIEWS LEFT EXAMINATION: XR KNEE 3 VIEWS LEFT HISTORY: Left knee follow up from surgery 3 months ago. Complains of pain since surgery. COMPARISON: Left knee 08/03/2024 TECHNIQUE: Left knee 3 views FINDINGS: The bone mineralization is normal. There is a left total knee arthroplasty without periprosthetic fracture or evidence of loosening. There is a trace knee joint effusion. The patella is well situated within the trochlear groove on the sunrise view. IMPRESSION: 1. Left total knee arthroplasty without periprosthetic fracture or evidence of loosening. 2. Trace knee joint effusion. Electronically signed in PowerScribe by: SNEHA ROMAN MD on:10/26/2024 12:15 PM cc: Page PAGE 1 of NUMPAGES 1 Temo Rodriguez MD [address] [place] [address], [phone], [facility] 10/31/2024 08:24:25 Problems Name Problem SNOMED Code Status Onset Date Resolution Date Notes Provider Name and Address Organization Details Recorded Time Pain of left knee joint 548190501387 107 Active 2023 Caridad Maldonado [facility] 4 14:36:53 Osteoarth ritis of left knee joint 388665952360 109 Active 2023 Yani Coffman [facility] 4 20:40:21 Acquired varus deformity of left knee 210179598789 100 Active 2023 Nigel Oneil PA-C [address] [place] [address], [address], [facility] 4 16:19:28 History of operative procedure on knee 426148690 Active 2023 Caridad Maldonado [facility] 4 16:49:57 Obstructi ve sleep apnea of adult 172074885238 3 Active 2023 Mary Lou Chante [facility] 4 10:51:29 Rosacea 302393185 [facility] 10:51:36 Multiple benign melanocyt ic nevi 351150858 Active 2023 Right & left upper extremity [facility] 4 10:52:06 Seborrhei c keratosis 858812775 Active 2023 [facility] 4 10:52:15 Solar lentigo 30598180 Active 2023 [facility] 4 10:52:19 Rosacea, papular type 69704680 Active 2023 Dorcas Gillette [facility] 4 09:18:14 Lentigo - freckle 724764563 Active 2023 Dorcas Gillette [facility] 4 09:18:30 Problem Notes None recorded. Procedures Surgical History Date Name Laterality Status Provider Name and Address Organization Details Recorded Time Colonoscopy with biopsy completed Not Available Health Note 05/25/2024 11:01:02 Total hysterectomy completed Not Available Health Note 05/25/2024 11:01:02 Removal of tonsils completed Not Available Health Note 05/25/2024 11:01:02 Total knee arthroplasty completed Not Available Health Note 05/25/2024 11:01:02 Imaging Results None recorded. Procedure Notes None recorded. Medical Equipment None Reported. Allergies Allergen ID Allergen Name Allergen Category Reaction Reaction Severity Criticality Documentation Date Start Date Code Code System Note Provider Name and Address Organization Details Recorded Time 201532 trazodone hydrochlo ride medicatio n Not available Not available Not available 08/30/20232018 14475 RxNorm React ion: Other : makes unres ponsi ve; Not Available [facility] 22:15:43 478003 diazepam medicatio n dyspnea Not available Not available 08/30/20232010 3322 RxNorm React ion: Short ness of breat h; Not Available [facility] 22:15:50 863239 morphine sulfate medicatio n seizure Not available Not available 08/30/20232010 81958 RxNorm React ion: Seizu res; Not Available [facility] 4 22:15:50 165402 Keflex medicatio n Not available Not available Not available 08/30/20232015 22224 7 RxNorm Not Available [facility] 4 22:16:06 037720 Elavil medicatio n Not available Not available Not available 08/30/20232015 08249 RxNorm Not Available [facility] 4 22:16:06 Medications Name Sig Start Date Stop Date [...] 1-3 times daily 2023 active last rx 12.30 . Not Available Not Available Not Available acetaminoph [...] glass of water 05/03 completed last rx 10.20 .23 Not Available Not Available Not Available [...] /min 98 % 98 % Sirena yan [facility] 08/03/2024 10:58:13 Date Recorded Body height Heart rate Oxygen saturation Oxygen saturation in Arterial blood by Pulse oximetry Provider Name and Address Organization Details Last Updated DateTime 10/26/2024 157.48 cm 75 /min 98 % 98 % Karen Mcgovern [facility] 10/26/2024 13:10:34 Date Recorded Body height Heart rate Oxygen saturation Oxygen saturation in Arterial blood by Pulse oximetry Provider Name and Address Organization Details Last Updated DateTime 06/01/2024 157.48 cm 91 /min 97 % 97 % Caridad [facility] 06/01/2024 10:25:43 Date Recorded Body height Heart rate Oxygen saturation Oxygen saturation in Arterial blood by Pulse oximetry Provider Name and Address Organization Details Last Updated DateTime 06/15/2024 157.48 cm 62 /min 98 % 98 % Caridad [facility] 06/15/2024 12:43:46 Social History Question Answer Notes LastModified by Criptext Details LastModified Time Tobacco Smoking Status Never Smoker Not Available Health Note 05/25/2024 11:01:03 Do You Have An Advance Directive? No [email or web address] Information not available 05/25/2024 What Is Your Level Of Caffeine Consumption? Occasional [email or web address] Information not available 05/25/2024 How Many Times Per Week Do You Exercise? Less Than 1 Time Per Week [email or web address] Information not available 05/25/2024 What Was The Date Of Your Most Recent Tobacco Screening? 06/01/2024 [email or web address] Information not available 05/25/2024 What Is Your Relationship Status? [email or web address] Information not available 05/25/2024 Sex: Unknown Functional Status Question Answer Note LastModified by Criptext Details LastModified Time Do you use any illicit or recreational drugs? No [email or web address] Information not available 05/25/2024 What is your level of alcohol consumption? None [email or web address] Information not available 05/25/2024 Are you currently employed? No [email or web address] Information not available 05/25/2024 What is your occupation? Retired [email or web address] Information not available 05/25/2024 What is your exercise level? Occasional [email or web address] [...] SNOMED-CT Code Diagnosis ICD10 Code Diagnosis Note [id number] Nigel Oneil PA-C [address] ([place]) [address] [place] [address],[address] [place] [address] 05/03/2024 14:54:02 05/03/2024 16:33:45 Osteoarthritis of left knee joint 2579647830 93775 M17.12 Acquired v arus deformity of left knee 6846144717 92469 M21.162 History of right total knee replacement 8867655171 191665 Z96.651 History of transient ischemic attack 551781857 Z86.73 [id number] Temo Rodriguez MD [address] [facility] [place] [address] [place] [address], [place] [address] 06/01/2024 09:45:18 06/01/2024 11:31:35 Osteoarthritis of left knee joint 3459278220 21251 M17.12 Preprocedu ral examination done 1311598093 89075 Z01.818 [id number] Temo Rodriguez MD [address] [facility] [place]) [address] [place] [address], [place] [address] 06/15/2024 12:03:08 06/15/2024 13:51:05 History of total knee arthroplasty 6579742656 105 Z96.652 [id number] Temo Rodriguez MD [address] [place] [address] [place] [address] 06/27/2024 14:29:24 07/03/2024 12:04:39 [id number] Temo Rodriguez MD [address] [facility] [place] [address] [place] [address],[address] [place] [address] 08/03/2024 10:44:37 08/03/2024 12:28:22 History of total knee arthroplasty 2795781913 105 Z96.652 [id number] Nigel Oneil PA-C [address] [place] [address] [place] [address] 10/26/2024 12:45:48 10/26/2024 13:20:35 History of total knee arthroplasty 0720938095 105 Z96.652 Health Concerns Section Related Observation LastModified by Organization Detai ls LastModified Time None Recorded Concern Status LastModified by Organization Details LastModified Time None Recorded Advance Directives Directive N: Payers Insurance Date Sequence Insurance Name Policy Number Policy Hankins Covered Member ID Hankins Member ID Guarantor Name 11/21/2024 1 [place] Ruby Parsonser [id number] Ruby Reema 01/06/2025 1 [employer] (MEDICARE REPLACEMENT/ ADVANTAGE - PPO) [id number] Ruby Parsonser [id number] Ruby Benavidez Notes Date Note Type Note Provider Name and Address Organization Details Recorded Time 4 text/html Ruby Pak a 68 year oldfemalepresenting for care. Temo Rodriguez MD [address] [place] [address], [phone], [facility] 06/12/2024 22:37:27 5 text/html Ruby Pak a 69 year oldfemalepresenting for care. Temo Rodriguez MD [address] [place] [address], [phone], [facility] 08/09/2024 15:40:42 5 text/html Patient was seen in the office today forXR, Koos, 3mo POF LTKA 24 . Patient states their pain level is at5/10 . Nigel Oneil PA-C [address] [place] [address], [phone], [facility] 10/26/2024 13:20:29 OBGyn Episode No OBEpisode recorded.
--- OUTSIDE RECORDS SUMMARY | 2025-02-10 08:33 | XMS_ITS | Encounter Summary ---
Author Organization [facility] Address [facility] [place] [address] Care Team Providers Care Veneer Sheet Repairer Name Role Phone Mike Brooks MD Unavailable [phone] Linda Schulte MD Unavailable Ho Mac MD Unavailable [phone] Tobi Davis MD Primary Care Provider [phone] Jessica Orr MD Unavailable Temo Rodriguez MD Unavailable [phone] Encounter Details Date Type Department Care Team (Late st Contact Info) Description 01/07/2019 Abstract [facility] CONVERSION [address] [place] [address] , Generic Conversion, Social History Tobacco Use Types Packs/Day Years Used Date Smoking Tobacco: Never Smokeless Tobacco: Never Alcohol Use Standard Drinks/Week Comments Yes 0 (1 standard drink = 0.6 oz pur e alcohol) occasional glass of wine Comments Unknown Sex and Gender Information Value Date Recorded Sex Assigned at Female 08/17/2024 2:23 PM TERMITE HELPER Legal Sex Female 6:09 PM CDT Gender Identity Not on file Sexual Orientation Not on file 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 Not on file [...] documented as of this encounter Care Teams Veneer Sheet Repairer Relationship Specialty Start Date End Date Tobi Davis MD [address] [place] [phone] PCP - General FAMILY PRACTICE 10/17/18 Mike Brooks MD CARDIOVASCULAR DISEASE 10/12/16 Linda Schulte MD [address] [place] [phone] Kettle Girl CLINICAL CARDIAC ELECTROPHYSIOLOGY 03/29/17 Ho Mac MD [address] [place] [address] Helen Kettle Girl CARDIOVASCULAR DISEASE 11/05/17 Jessica Orr MD [address] [address] Surgeon NEUROLOGICAL SURGERY 04/07/19 Temo Rodriguez MD [address] [phone] ORTHOPAEDIC SURGERY 05/30/24 documented as of this encounter
--- OUTSIDE RECORDS SUMMARY | 2025-02-10 08:33 | XMS_ITS | Encounter Summary ---
Author Organization [facility] Address [address] [place] [address] Care Team Providers Care Sap Consultant Name Role Phone Alton Marie MD Primary Care Provider [phone] Yosvany Bahena MD Unavailable [phone] Mike Brooks MD Unavailable [phone] Linda Schulte MD Unavailable Mai Bauer [facility] Unavailable [phone] Juan Cadena MD Unavailable Ho Mac MD Unavailable [phone] Tobi Davis MD Primary Care Provider Jessica Orr MD Unavailable Temo Rodriguez MD Unavailable [phone] Encounter Details Date Type Department Care Team (Late st Contact Info) Description 10/21/2015 Abstract [facility] [address] [place] [address] Mike Brooks MD [address] [facility], [address] [place] [address] Social History Tobacco Use Types Packs/Day Years Used Date Smoking Tobacco: Never Alcohol Use Standard Drinks/Week Comments No 0 (1 standard drink = 0.6 oz pur e alcohol) Comments Unknown Sex and Gender Information Value Date Recorded Sex Assigned at Female 08/17/2024 2:23 PM LEGAL ASSOCIATE Legal Sex Female 6:09 PM CDT Gender Identity Not on file Sexual Orientation Not on file 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 Not on file [...] documented as of this encounter Care Teams Sap Consultant Relationship Specialty Start Date End Date Alton Marie MD [address] [place] [phone] PCP - General FAMILY PRACTICE 07/13/16 10/16/18 Tobi Davis MD [address] [place] [phone] PCP - General FAMILY PRACTICE 10/17/18 Yosvany Bahena MD [address] [place] [phone] CARDIOVASCULAR DISEASE 07/13/16 Mike Brooks MD [address] [place] [address] CARDIOVASCULAR DISEASE 10/12/16 Linda Schulte MD [address] [place] [address] EP Dairy Bacteriologist CLINICAL CARDIAC ELECTROPHYSIOLOGY 03/29/17 Mai Bauer FNP-BC [address] [place] [address] CARDIOVASCULAR DISEASE 10/21/17 8 Juan Cadena MD [address] [place] [address] CARDIOVASCULAR DISEASE 10/21/17 8 Ho Mac MD [address] [place] [address] [place] Dairy Bacteriologist CARDIOVASCULAR DISEASE 11/05/17 Jessica Orr MD [address] [place] [address] Surgeon NEUROLOGICAL SURGERY 04/07/19 Temo Rodriguez MD [address] [address] ORTHOPAEDIC SURGERY 05/30/24 documented as of this encounter
--- OUTSIDE RECORDS SUMMARY | 2025-02-10 08:33 | XMS_ITS | Encounter Summary ---
Author Organization [facility] Address [address] [place] [address] Care Team Providers Care Electrolog Operator Name Role Phone Alton Marie MD Primary Care Provider [phone] Mike Brooks MD Unavailable [phone] Linda Schulte MD Unavailable Mai Bauer [facility]- Unavailable [phone] Juan Cadena MD Unavailable Ho Mac MD Unavailable [phone] Tobi Davis MD Primary Care Provider Jessica Orr MD Unavailable Temo Rodriguez MD Unavailable [phone] Encounter Details Date Type Department Care Team (Late st Contact Info) Description 10/16/2017 Abstract [facility] CONVERSION [address] [place] [address] , Generic Conversion, Social History Tobacco Use Types Packs/Day Years Used Date Smoking Tobacco: Never Smokeless Tobacco: Never Alcohol Use Standard Drinks/Week Comments Yes 0 (1 standard drink = 0.6 oz pur e alcohol) occasional glass of wine Comments Unknown Sex and Gender Information Value Date Recorded Sex Assigned at Female 08/17/2024 2:23 PM LIVESTOCK RANCH HAND Legal Sex Female 6:09 PM CDT Gender Identity Not on file Sexual Orientation Not on file 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 Not on file [...] documented as of this encounter Care Teams Electrolog Operator Relationship Specialty Start Date End Date Alton Marie MD [address] [place] [phone] PCP - [facility] FAMILY PRACTICE 07/13/16 10/16/18 Tobi Davis MD [address] [place] [phone] PCP - [facility] PRACTICE 10/17/18 Mike Brooks MD [address] [place] [phone] CARDIOVASCULAR DISEASE 10/12/16 Linda Schulte MD [address] [place] [address] EP Tanker Serviceman CLINICAL CARDIAC ELECTROPHYSIOLOGY 03/29/17 Mai Bauer FNP-BC [address] [place] [address] CARDIOVASCULAR DISEASE 10/21/17 8 Juan Cadena MD [address] [place] [address] CARDIOVASCULAR DISEASE 10/21/17 8 Ho Mac MD [address] [place] [address] [place] Tanker Serviceman CARDIOVASCULAR DISEASE 11/05/17 Jessica Orr MD [address] [address] Surgeon NEUROLOGICAL SURGERY 04/07/19 Temo Rodriguez MD [address] [phone] ORTHOPAEDIC SURGERY 05/30/24 documented as of this encounter
--- NOTE | 2025-02-10 08:36 | ED.LOWEXIN ---
HPI - Extremity Injury (Lower) General Chief Complaint: Extremity Injury, Lower Stated Complaint: left leg injury Time Seen by Provider: 02/10/25 08:33 Source: patient Mode of arrival: ambulatory Limitations: no limitations History of Present Illness HPI Narrative: this is a 69-year-old female with a history of some knee surgery and working jammed her anemia causing pain and discomfort rates her pain about 6/10 with a minimal swelling no bruising falls numbness or tingling. complaint: knee injury Onset (ago): hour(s) Injury: Left: knee ( tenderness with palpation) Type of Injury: eversion Place: work Severity scale (1-10): 6 Relieving factors: other Exacerbating factors: weight bearing, movement and palpation Context: walking Associated symptoms: snap/pop sensation Related Data Home Medications ?Medication ?Instructions ?Recorded ?Confirmed ?Last Taken ?Type levothyroxine 75 mcg tablet 75 mcg PO DAILY 06/12/20 06/12/20 Unknown History metformin 1,000 mg tablet 1,000 mg PO BID 06/12/20 06/12/20 Unknown History Allergies Allergy/AdvReac Type Severity Reaction Status Date / Time diazepam (From Valium) Allergy Unknown Verified 02/10/25 08:32 morphine Allergy Unknown Verified 02/10/25 08:32 Review of Systems Review of Systems: All systems reviewed & are unremarkable except as noted in HPI and below PMFSH Past Medical History Medical History Iron deficiency anemia Chronic diarrhea Vitamin D deficiency Hypothyroidism Diabetes Surgical History Surgical History Total knee replacement status Family History Family History Mother Lymphoma Father CAD (coronary artery disease) Social History Social History Social History: Smoking status: Never smoker Alcohol intake: never Exam Const: General: healthy appearing, no acute distress and alert Nutritional Appearance: well nourished Orientation/consciousness: patient oriented x3 Limitations: no limitations Resp: Effort & Inspection: normal respiratory effort Auscultation: clear to auscultation bilaterally Cardio: Rate: regular rate Rhythm: regular rhythm GI: GI Palp: Yes Soft to palpation Auscultation: normal bowel sounds : General: Yes bladder normal to palpation Skin: General skin exam: normal color Rashes: no rashes Wounds: no wounds Neuro: General: patient oriented x3 and moves all extremities Extrem: Other: Left knee tenderness with palpation and movement with minimal swelling no bruising Course Course Emergency Course: patient received 600mg PO Motrin, x-ray performed shows no acute fractures. Critical Care Time Critical Care Time Critical Care Time: No Discharge Plan Discharge Clinical Impression: Muscle strain of left knee Patient Disposition: Home Condition: Stable Instructions: Antibiotic Form, Knee Sprain (ED) Additional Instructions: advised patient to take medication as prescribed continue Alexander wrap and follow with primary if symptoms persist or worsen. Patient Language: Citizen Of [place] Prescriptions: New naproxen 500 mg tablet 500 mg PO BID PRN (Reason: pain) Qty: 14 0RF No Action levothyroxine 75 mcg tablet 75 mcg PO DAILY metformin 1,000 mg tablet 1,000 mg PO BID Follow-up/Referrals: Ryan,MD Tobi [Primary Care Provider] -
[2025-02-10] MEDS: IBUPROFEN 600 MG TABLET PO (08:49)
--- NOTE | 2025-02-10 09:21 | PC.NURSE ---
Pt states she has a knee brace already at home, prefers to wear that over kamaljit wrap.
--- OUTSIDE RECORDS SUMMARY | 2025-02-10 09:25 | XMS_ITS | Encounter Summary ---
Author Organization [facility] Address [address] [place] [address] Care Team Providers Care Studio Producer Name Role Phone Alton Marie MD Primary Care Provider + [phone] Yosvany Bahena MD Unavailable [phone] Mike Brooks MD Unavailable [phone] Linda Schulte MD Unavailable Mai Bauer [facility] Unavailable +[phone] Juan Cadena MD Unavailable Ho Mac MD Unavailable [phone] Tobi Davis MD Primary Care Provider Jessica Orr MD Unavailable Temo Rodriguez MD Unavailable [phone] Encounter Details Date Type Department Care Team (Late st Contact Info) Description 10/21/2015 Abstract [facility] PHI [address] [place] [address] Mike Brooks MD [address] [facility], [address] [place] [address] Social History Tobacco Use Types Packs/Day Years Used Date Smoking Tobacco: Never Alcohol Use Standard Drinks/Week Comments No 0 (1 standard drink = 0.6 oz pur e alcohol) Comments Unknown Sex and Gender Information Value Date Recorded Sex Assigned at Female 08/17/2024 2:23 PM ACCOUNT MANAGER TRAINEE Legal Sex Female 6:09 PM CDT Gender Identity Not on file Sexual Orientation Not on file 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 Not on file [...] documented as of this encounter Care Teams Studio Producer Relationship Specialty Start Date End Date Alton Marie MD [address] [place] [phone] PCP - General FAMILY PRACTICE 07/13/16 10/16/18 Tobi Davis MD [address] [place] [phone] PCP - General FAMILY PRACTICE 10/17/18 Yosvany Bahena MD [address] [place] [phone] CARDIOVASCULAR DISEASE 07/13/16 Mike Brooks MD [address] [place] [address] CARDIOVASCULAR DISEASE 10/12/16 Linda Schulte MD [address] [place] [address] EP Slicer Machine Operator CLINICAL CARDIAC ELECTROPHYSIOLOGY 03/29/17 Mai Bauer FNP-BC [address] [place] [address] CARDIOVASCULAR DISEASE 10/21/17 8 Juan Cadena MD [address] [place] [address] CARDIOVASCULAR DISEASE 10/21/17 8 Ho Mac MD [address] [place] [address] [place] Slicer Machine Operator CARDIOVASCULAR DISEASE 11/05/17 Jessica Orr MD [address] [place] [address] Surgeon NEUROLOGICAL SURGERY 04/07/19 Temo Rodriguez MD [address] [address] ORTHOPAEDIC SURGERY 05/30/24 documented as of this encounter
--- OUTSIDE RECORDS SUMMARY | 2025-02-10 09:26 | XMS_ITS | Clinical Summary ---
Author Organization [facility] Address [address] [place] [address] Care Team Providers Care Wireless Consultant Name Role Phone Mike Brooks MD Unavailable [phone] Linda Schulte MD Unavailable Ho Mac MD Unavailable [phone] Tobi Pollack MD Primary Care Provider Jessica Orr MD Unavailable Temo Rodriguez MD Unavailable [phone] Allergies Active Allergy Reactions Criticality Noted [...] both hips 07/01 CVA (cerebral vascular accident) ([facility]) 11/09/2017 Diabetes ([facility]) 11/09/2017 GERD (gastroesophageal reflux disease) 8 Sleep apnea 11/09/2017 Overview (11/09/2017): does not use C-pap due to sinus issues TIA (transient ischemic attack) 11/09/2017 Chest discomfort 10/12/2016 PFO (patent foramen ovale) ([facility]) 10/12/2016 Syncope and collapse 07/14/2016 Vasovagal syncope 07/14/2016 Encounters Date Type Department Care Team Description 11/20/2024 9:30 AM CDT - 11/20/2024 11:59 PM CDT Hospital Encounter [facility] [address] [place] [address] Tobi Pollack MD Discharge Disposition: Home or [...] pur e alcohol) occasional glass of wine [employer] Util[employer] Answer Date Recorded In the past 12 months has e electric, gas, oil, or water c3 creations threatened to shut off services in your [...] Sex Assigned at Female 08/17/2024 2:23 PM WAYBILL CLERK Legal Sex Female 6:09 PM CDT Gender Identity Not on file Sexual Orientation Not on file 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 Not on file [...] this topic Medical Devices Implanted Type Area Dental Technician Device Identifier Shelf Expiration Date Model / Serial / Lot Cement Bone Biomet 40gm - [id number] Implanted:Qty : 2 on 06/13/2024 by Temo Rodriguez MD at [facility] Cement Implant Left: Knee [employer] [id number] 08/01/2026 [id number] / / [id number] Femur Doris Persona Cr Standard Size 5 Left - [id number] Implanted:Qty : 1 on 06/13/2024 by Temo Rodriguez MD at [facility] Knee Components Left: Knee [employer] [id number] 12/07/2033 [id number] / / [id number] Tibia Stemmed Base Doris Persona Size D Left - [id number] Implanted:Qty : 1 on 06/13/2024 by Temo Rodriguez MD at [facility] Knee Components Left: Knee [employer] [id number] 04/19/2033 [id number] / / [id number] Insert Artc 4-5 Cd 12mm Kn Lt Crcte Rtn Vivacit-E Persona - [id number] Implanted:Qty : 1 on 06/13/2024 by Temo Rodriguez MD at [facility] Knee Components Left: Knee [employer] [id number] 10/29/2027 [id number] / / [id number] Screw Headed Mis Doris 48mm - [id number] Implanted:Qty : 1 on 06/13/2024 by Temo Rodriguez MD at [facility] Screw Left: Knee [employer] [id number] 01/12/2032 [id number] / / [id number] Screw Headed Mis Doris 48mm - [id number] Implanted:Qty : 1 on 06/13/2024 by Temo Rodriguez MD at [facility] Screw Left: Knee [employer] [id number] 02/18/2034 [id number] / / [id number] Explanted Type Area Dental Technician Device Identifier Shelf Expiration Date Model / Serial / Lot Drill Bit Pin Doris Headless Trocar - [id number] Explanted:Qty: 1 on 06/13/2024 by Temo Rodriguez MD at [facility] Drill Left: Knee [employer] [id number] 05/17/2034 [id number] / / [id number] Procedures Procedure Name Priority Date/Time Associated Diagnosis Comments XR LUMB SPINE 3V Routine 11/20/2024 9:41 AM CDT Lumbar strain, sequela BONE DENSITY/DEXA Routine 09/21/2023 12: 58 PM WAYBILL CLERK Postmenopausal status LIPID PANEL TIMED 07/25/2023 5:51 AM WAYBILL CLERK HEMOGLOBIN, GLYCOSYLATED Routine 07/25/2023 12:30 AM WAYBILL CLERK MG DIAG W DOMI RT DIGI Routine 06/23/2023 12:42 PM WAYBILL CLERK Abnormal mammogram HEPATITIS PANEL,ACUTE Routine 08/19/2018 1:25 PM WAYBILL CLERK from Last 3 Months or Most Recently [...] 10:22 AM Narrative 11/20/2024 10:23 [address]T [address] [place] [address] Examination: Lumbar spine Exam time: 0916 hours. [...] Procedure Note Alden Hathaway MD - 11/20/[address] [place] [address] Examination: Lumbar spine Exam time: 0916 hours. [...] t * BONE DENSITY/DEXA (09/21/2023 12:58 PM WAYBILL CLERK) Anatomical Region Laterality Modality Bone Bone Density 09/21/2023 1:36 PM WAYBILL CLERK Impressions 09/21/2023 1:39 PM WAYBILL CLERK Impression: BMD measured at both femoral necks at WHO category level of osteopenia. BMD measured at both total hips and AP lumbar spine at level of normal. Ordered By: BERTHA GARCIA Interpreted By: London Sandhu MD, 09/21/2023 1:36 PM Narrative 09/21/2023 1:39 PM WAYBILL CLERK Examination: DEXA Bone densitometry EXAM DATE: 09/21/2023 [...] lt * LIPID PANEL (07/25/2023 5:51 AM WAYBILL CLERK) [facility] CHOLESTEROL 164 MG/DL 07/25/2023 7:34 AM WAYBILL CLERK [facility] Comment:DESIRABLE: <200 TRIGLYCERIDES 51 MG/DL 07/25/2023 7:34 AM WAYBILL CLERK [facility] Comment:<150 NORMAL HDL 80 >49 MG/DL 07/25/2023 7:34 AM [facility] LDL (CALCULATED) 74 MG/DL 07/25/20 7:34 AM [facility] Comment:<100 OPTIMAL VLDL CALCULATION 10 MG/DL 07/25/20 7:34 AM [facility] Comment:REFERENCE RANGE NOT ESTABLISHED CHOL/HDL RATIO 2.0 07/25/2023 7:34 AM WAYBILL CLERK [facility] Comment:REFERENCE RANGE NOT ESTABLISHED LDL/HDL 0.9 07/25/2023 7:34 AM [facility] Comment:REFERENCE RANGE NOT ESTABLISHED NON HDL CHOLESTEROL 84 MG/DL 07/25/2023 7:34 AM [facility] Comment:REFERENCE RANGE NOT ESTABLISHED 07/25/2023 5:51 AM WAYBILL CLERK us Yao Bernabe MD LABORATORY Final Result Performing Organization Address City/[facility] Co de Phone Number [facility] [address] [place] [address], [place] [phone] * HEMOGLOBIN, GLYCATED (07/25/2023 12:30 AM WAYBILL CLERK) HGB A1C 5.6 <5.7 % 07/25/2023 7:46 AM WAYBILL CLERK [facility] ESTIMATED AVG GLUCOSE 114 74 - 114 MG/DL 07/25/2023 7:46 AM [facility] 07/25/2023 12:3 0 AM WAYBILL CLERK us Yao Bernabe MD LABORATORY Final Result Performing Organization Address [facility] Co de Phone Number [facility] [address] [place] [address], [place] [phone] * MG DIAG W DOMI RT DIGI (06/23/2023 12:42 PM WAYBILL CLERK) Anatomical Region Laterality Modality Breast Right Mammography, Rad iographic Imaging 06/23/2023 1:23 PM WAYBILL CLERK Narrative 06/23/2023 1:30 PM WAYBILL CLERK Examination: Digital right diagnostic mammogram with CAD. [id number] Clinical history: Follow-up of probably benign nodule. [...] harmonic imaging improves conspicuity compared to previous. Mckean appearing tissue architecture is otherwise demonstrated. No [...] t * HEPATITIS PANEL,ACUTE (08/19/2018 1:25 PM WAYBILL CLERK) HEPATITIS B SURFACE AG NON-REACT ABI NON-REACT ABI 08/22/2018 11:13 AM WAYBILL CLERK [facility] Comment:HBsAg NOT DETECTED. HEP B CORE IGM NON-REACT ABI NON-REACT ABI 08/22/2018 11:13 AM WAYBILL CLERK [facility] Comment: IgM ANTI HBc NOT DETECTED. DOES NOT EXCLUDE THE POSSIBILITY OF EXPOSURE TO OR INFECTION WITH HBV. NO RETEST REQUIRED.HIGH DOSES OF BIOTIN MAY INTERFERE WITH THIS TEST RESULT. CORRELATION TO CLINICAL HISTORY AND PRESENTATION RECOMMENDED. HAV IGM NON-REACT ABI NON-REACT ABI 08/22/2018 11:13 AM WAYBILL CLERK [facility] Comment: IgM ANTI HAV NOT DETECTED. DOES NOT EXCLUDE THE POSSIBILITY OF EXPOSURE TO OR INFECTION WITH HAV. LEVELS OF IgM ANTI HAV MAY BE BELOW THE CUTOFF IN EARLY INFECTION. HEPATITIS C AB NON-REACT ABI NON-REACT ABI 08/22/2018 11:13 AM WAYBILL CLERK [facility] Comment: ANTIBODIES TO HCV NOT DETECTED. DOES NOT EXCLUDE THE POSSIBILITY OF EXPOSURE TO HCV. 08/19/2018 1:25 PM WAYBILL CLERK 08/19/2018 2:34 PM WAYBILL CLERK us Generic Conversion Md [facility] Final R esult [facility] [address] [place] [address], [phone] from Last 3 Months or Most Recently Relevant to Health Maintenance Insurance [employer]IM[employer]MENTS OF [place] Advance Directives * Full Code (Latest Code Status on File) Date Activated Date Inactivated Comments 06/13/2024 3:46 PM 06/14/2024 6:04 PM * Full Code Date Activated Date Inactivated Comments 07/25/2023 12:08 AM 07/25/2023 3:16 PM Care Teams Wireless Consultant Relationship Specialty Start Date End Date Tobi Pollack MD [address] [place] [phone] PCP - General FAMILY PRACTICE 10/17/18 Mike Brooks MD CARDIOVASCULAR DISEASE 10/12/16 Linda Schulte MD [address] [place] [address] EP Site Promotion Agent CLINICAL CARDIAC ELECTROPHYSIOLOGY 03/29/17 Ho Mac MD [address] [place] [phone] [place] Site Promotion Agent CARDIOVASCULAR DISEASE 11/05/17 Jessica Orr MD [address] [place] [address] Surgeon NEUROLOGICAL SURGERY 04/07/19 Temo Rodriguez MD [address] [phone] ORTHOPAEDIC SURGERY 05/30/24
--- OUTSIDE RECORDS SUMMARY | 2025-02-10 09:26 | XMS_ITS | Clinical Summary ---
Author Organization [facility] Care Team Providers Care Canal Structure Operator Name Role Phone Unavailable Primary Care Provider [...]
--- OUTSIDE RECORDS SUMMARY | 2025-02-10 09:26 | XMS_ITS | Encounter Summary ---
Author Organization [facility] Address [facility] [place] [address] Care Team Providers Care Wood Chopper Name Role Phone Mike Brooks MD Unavailable [phone] Linda Schulte MD Unavailable Ho Mac MD Unavailable [phone] Tobi Davis MD Primary Care Provider Jessica Orr MD Unavailable Temo Rodriguez MD Unavailable [phone] Encounter Details Date Type Department Care Team (Late st Contact Info) Description 01/07/2019 Abstract [facility] [address] [place] [address] , Generic Conversion, Social History Tobacco Use Types Packs/Day Years Used Date Smoking Tobacco: Never Smokeless Tobacco: Never Alcohol Use Standard Drinks/Week Comments Yes 0 (1 standard drink = 0.6 oz pur e alcohol) occasional glass of wine Comments Unknown Sex and Gender Information Value Date Recorded Sex Assigned at Female 08/17/2024 2:23 PM DENTURES LAB TECHNICIAN Legal Sex Female 6:09 PM CDT Gender Identity Not on file Sexual Orientation Not on file 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 Not on file [...] documented as of this encounter Care Teams Wood Chopper Relationship Specialty Start Date End Date Tobi Davis MD [address] [place] [phone] PCP - General FAMILY PRACTICE 10/17/18 Mike Brooks MD CARDIOVASCULAR DISEASE 10/12/16 Linda Schulte MD [address] [place] [phone] Drug Enforcement Agent CLINICAL CARDIAC ELECTROPHYSIOLOGY 03/29/17 Ho Mac MD [address] [place] [address] [place] Drug Enforcement Agent CARDIOVASCULAR DISEASE 11/05/17 Jessica Orr MD [address] [address] Surgeon NEUROLOGICAL SURGERY 04/07/19 Temo Rodriguez MD [address] [phone] ORTHOPAEDIC SURGERY 05/30/24 documented as of this encounter
--- OUTSIDE RECORDS SUMMARY | 2025-02-10 09:26 | XMS_ITS | Encounter Summary ---
Author Organization [facility] Address [address] [place] [address] Care Team Providers Care Glazing Machine Operator Name Role Phone Alton Marie MD Primary Care Provider [phone] Yosvany Bahena MD Unavailable [phone] Mike Brooks MD Unavailable [phone] Linda Schulte MD Unavailable Mai Bauer [facility] Unavailable [phone] Juan Cadena MD Unavailable Ho Mac MD Unavailable [phone] Tobi Davis MD Primary Care Provider Jessica Orr MD Unavailable Temo Rodriguez MD Unavailable [phone] Encounter Details Date Type Department Care Team (Late st Contact Info) Description 10/12/2016 Abstract [facility] AT [facility] [address] [place] [address] Mike Brooks MD [address] [facility], [address] [place] [address] Social History Tobacco Use Types Packs/Day Years Used Date Smoking Tobacco: Never Alcohol Use Standard Drinks/Week Comments No 0 (1 standard drink = 0.6 oz pur e alcohol) Comments Unknown Sex and Gender Information Value Date Recorded Sex Assigned at Female 08/17/2024 2:23 PM GRAZING AIDE Legal Sex Female 6:09 PM CDT Gender Identity Not on file Sexual Orientation Not on file 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 Not on file [...] documented as of this encounter Care Teams Glazing Machine Operator Relationship Specialty Start Date End Date Alton Marie MD [address] [place] [phone] PCP - General FAMILY PRACTICE 07/13/16 10/16/18 Tobi Davis MD [address] [place] [phone] PCP - General FAMILY PRACTICE 10/17/18 Yosvany Bahena MD [address] [place] [phone] CARDIOVASCULAR DISEASE 07/13/16 Mike Brooks MD [address] [place] [address] CARDIOVASCULAR DISEASE 10/12/16 Linda Schulte MD [address] [place] [address] EP Automobile Mechanic Radiator CLINICAL CARDIAC ELECTROPHYSIOLOGY 03/29/17 Mai Bauer FNP-BC [address] [place] [address] CARDIOVASCULAR DISEASE 10/21/17 8 Juan Cadena MD [address] [place] [address] CARDIOVASCULAR DISEASE 10/21/17 8 Ho Mac MD [address] [place] [address] [place] Automobile Mechanic Radiator CARDIOVASCULAR DISEASE 11/05/17 Jessica Orr MD [address] [place] [address] Surgeon NEUROLOGICAL SURGERY 04/07/19 Temo Rodriguez MD [address] [phone] ORTHOPAEDIC SURGERY 05/30/24 documented as of this encounter
--- OUTSIDE RECORDS SUMMARY | 2025-02-10 09:26 | XMS_ITS | Clinical Summary ---
Author Organization [email or web address] Address [address] [place] [address] Care Team Providers Care Barber Shop Operator Name Role Phone Branden Kearney MD Primary Care Provider + Source Comments [email or web address],non-owned Affiliates and Associated Physician Practices is amultiple site organization consisting of ambulatory clinics and hospital sitesin [place], [place], [place] and [place]. This disclosure is being madepursuant to the Care Everywhere program and may not contain all information available regarding this patient. Last updated 18.[email or web address] Allergies Active Allergy Reactions Criticality Noted Date [...] on file Legal Sex Female 6:48 PM ASSOCIATE SALES REPRESENTATIVE Gender Identity Not on file Sexual Orientation [...] age to complete this topic Care Teams Barber Shop Operator Relationship Specialty Start Date End Date Branden Kearney MD [address] [place] [phone] PCP - General 08/19/12
--- OUTSIDE RECORDS SUMMARY | 2025-02-10 09:26 | XMS_ITS | Encounter Summary ---
Author Organization [facility] Address [address] [place] [address] Care Team Providers Care Data Security Administrator Name Role Phone Alton Marie MD Primary Care Provider [phone] Mike Brooks MD Unavailable [phone] Linda Schulte MD Unavailable Mai Bauer [facility]- Unavailable [phone] Juan Cadena MD Unavailable Ho Mac MD Unavailable [phone] Tobi Davis MD Primary Care Provider Jessica Orr MD Unavailable Temo Rodriguez MD Unavailable [phone] Encounter Details Date Type Department Care Team (Late st Contact Info) Description 10/16/2017 Abstract [facility] [address] [place] [address] , Generic Conversion, Social History Tobacco Use Types Packs/Day Years Used Date Smoking Tobacco: Never Smokeless Tobacco: Never Alcohol Use Standard Drinks/Week Comments Yes 0 (1 standard drink = 0.6 oz pur e alcohol) occasional glass of wine Comments Unknown Sex and Gender Information Value Date Recorded Sex Assigned at Female 08/17/2024 2:23 PM PIPE CAULKER Legal Sex Female 6:09 PM CDT Gender Identity Not on file Sexual Orientation Not on file 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 [...] documented as of this encounter Care Teams Data Security Administrator Relationship Specialty Start Date End Date Alton Marie MD [address] [place] [phone] PCP - [facility] FAMILY PRACTICE 07/13/16 10/16/18 Tobi Davis MD [address] [place] [phone] PCP - [facility] PRACTICE 10/17/18 Mike Brooks MD [address] [place] [phone] CARDIOVASCULAR DISEASE 10/12/16 Linda Schulte MD [address] [place] [phone] EP Door Frame Assembler Machine CLINICAL CARDIAC ELECTROPHYSIOLOGY 03/29/17 Mai Bauer FNP-BC [address] [place] [address] CARDIOVASCULAR DISEASE 10/21/17 8 Juan Cadena MD [address] [place] [address] CARDIOVASCULAR DISEASE 10/21/17 8 Ho Mac MD [address] [place] [address] [place] Door Frame Assembler Machine CARDIOVASCULAR DISEASE 11/05/17 Jessica Orr MD [address] [address] Surgeon NEUROLOGICAL SURGERY 04/07/19 Temo Rodriguez MD [address] [phone] ORTHOPAEDIC SURGERY 05/30/24 documented as of this encounter
--- OUTSIDE RECORDS SUMMARY | 2025-02-10 09:26 | XMS_ITS | Encounter Summary ---
Author Organization [facility] Address [address] [place] [address] Care Team Providers Care Contaminated Land Consultant Name Role Phone Mike Brooks MD Unavailable [phone] Linda Schulte MD Unavailable Ho Mac MD Unavailable [phone] Tobi Davis MD Primary Care Provider [phone] Jessica Orr MD Unavailable Temo Rodriguez MD Unavailable [phone] Encounter Details Date Type Department Care Team (Late st Contact Info) Description 07/27/2023 Hospital Follow-up Call [facility] Cardiovascular Care Unit [address] [place] [address] Ruchi Omer, RN Social History Tobacco Use Types Packs/Day Years Used Date Smoking Tobacco: Never Smokeless Tobacco: Never Alcohol Use Standard Drinks/Week Comments Yes 0 (1 standard drink = 0.6 oz pur e alcohol) occasional glass of wine [facility] Utilities Answer Date Recorded In the past 12 months has e [employer], gas, oil, or water [employer] threatened to shut off services in your [...] place to sleep or slept in a fdc (including now)? 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 file Not on file documented as of this encounter Functional Status * Are you deaf or do you have serious difficulty hearing Answer Date of Assessment Author Status No 07/25/2023 12:07 AM Alxeis Rios RN Active * Are you blind [...] on filedocumented in this encounter Care Teams Contaminated Land Consultant Relationship Specialty Start Date End Date Tobi Davis MD [address] [place] [phone] PCP - General FAMILY PRACTICE 10/17/18 Mike Brooks MD CARDIOVASCULAR DISEASE 10/12/16 Linda Schulte MD [address] [place] [phone] EP Commercial Sales Representative CLINICAL CARDIAC ELECTROPHYSIOLOGY 03/29/17 Ho Mac MD [address] [place] [phone] [place] Commercial Sales Representative CARDIOVASCULAR DISEASE 11/05/17 Jessica Orr MD [address] [place] [phone] Surgeon NEUROLOGICAL SURGERY 04/07/19 Temo Rodriguez MD [address] [place] [phone] ORTHOPAEDIC SURGERY 05/30/24 documented as of this encounter
== END 2025-02-10 09:28 | disposition home or self-care (01) ==
LOC: CHSED 09:24
PROVIDERS: Emergency Provider Emergency Medicine; PCP Family Medicine
DX: S76.912A Strain of unspecified muscles, fascia and tendons at thigh level, left thigh, initial encounter (principal); E03.9 Hypothyroidism, unspecified; E11.9 Type 2 diabetes mellitus without complications; X58.XXXA Exposure to other specified factors, initial encounter
CPT/HCPCS: 73562; 99283; A9270